=== PATIENT | female | born 1955 | race Caucasian/White ===

== ENCOUNTER 2023-09-13 07:16 | Inpatient (IN) | payer MEDICARE, OTHER, SELFPAY ==
--- NOTE | 2023-08-19 09:03 | EKG12_ITS ---
Test Reason : PREOP Blood Pressure : / mmHG Vent. Rate : 081 BPM Atrial Rate : 081 BPM P-R Int : 122 ms QRS Dur : 080 ms QT Int : 374 ms P-R-T Axes : 014 -02 000 degrees QTc Int : 434 ms Normal sinus rhythm Normal ECG Confirmed by Patrick Pennington ([id number]), scientific publications editor JANICE HARP ([id number]) on 08/20/2023 6:23:53 AM Referred By: Efren Nevarez Confirmed By:Patrick Pennington
[2023-08-19 10:30] LABS: Absolute Lymphocyte Count 1.76 X10^3/uL (0.83-4.51); Basophil# 0.04 X10^3/uL; Basophil% 0.6 % (0-1); Eosinophil# 0.12 X10^3/uL; Eosinophils% 1.9 % (0-5); Hematocrit 42.4 % (37-47); Hemoglobin 13.7 g/dL (12.0-15.0); Lymphocyte # 1.76 X10^3/ul (0.83-4.51); Lymphocyte % 27.3 % (19-41); Mean Corp Hgb Conc 32.3 g/dL (32-36); Mean Corpuscular Hgb 30.4 pg (27.0-32.0); Mean Platelet Vol. 12.5 fl (6.2-12.0); Monocyte# 0.55 X10^3/uL; Monocyte% 8.5 % (0-10); NRBC Flagged by Analyzer 0 % (0-5); Neutrophil # 3.95 X10^3/uL (2.7-7.7); Neutrophil % 61.4 % (47-70); Platelet Count 179 K/mm3 (150-450); RBC Distribution Width CV 13.2 % (11.6-14.6); RBC Distribution Width SD 45.6 fl (35.1-43.9); Red Blood Count 4.51 M/mm3 (4.2-5.4); White Blood Count 6.4 K/mm3 (4.4-11.0)
[2023-08-19 10:46] LABS: Magnesium 2.8 mg/dL (1.6-2.6)
[2023-08-19 13:22] LABS: Albumin, Serum 3.7 g/dL (3.2-5.0); Anion Gap 8 (5-15); BUN 21 mg/dL (7-18); BUN/Creat Ratio 32.1 RATIO (10-20); Calcium,Total 9.7 mg/dL (8.5-10.1); Chloride 108 mmol/L (98-107); Creatinine, Serum 0.65 mg/dL (0.55-1.02); EST Glomerular Filtration Rate 95 mL/min (>60); Est Glom Filt Rate - Afr Amer 115 mL/min (>60); Glucose 98 mg/dL (74-106); Potassium 4.4 mmol/L (3.5-5.1); Sodium Level 144 mmol/L (136-145)
--- NOTE | 2023-09-08 13:58 | HP.PCM_ITS ---
History and Physical History and Physical Patient Name: Rosie Abrams : 1955From:? [facility] PA-C DATE OF PRE-OPERATIVE EXAM: 09/08/2023 DATE OF SURGERY:? 09/13/2023 SCHEDULED PROCEDURE: Revision right total knee arthroplasty with both components HISTORY OF PRESENT ILLNESS: Preoperative history and physical exam was performed on September 08, 2023.? This is a 67-year-old female who is been having ongoing right knee pain.? She underwent a previous right knee arthroplasty by Dr. Campos on November 27, 2022.? This was followed by manipulation under anesthesia by Dr. Campos on February 15, 2023.? Patient wanted a second opinion in which she was seen Dr. Efren Nevarez.? Patient has had continued pain which is constant, aching, sharp, stabbing.? Pain is increased with going up and down stairs, sitting and walking.? She has difficulty with activities of daily living including bathing/showering, getting dressed, housework, shopping and leisure activities.? She has difficulty riding in the car secondary to the pain.? She cannot sit for long periods of time.? She has stiffness in the knee.? Patient has been through previous physical therapy, Medrol Dosepak, oxycodone, Advil, meloxicam.? She has also tried muscle relaxers area she has also had cupping treatments.? Patient was also prescribed Montelukast as an off label use for scar tissue/adhesion prevention.? In which she had a geniculate nerve ablation.? That was not helpful.? She is frustrated with her knee pain and stiffness.? She is using a cane for ambulatory assistance.? Patient has medical history pertinent for hypertension.? She has received clearance from the primary care provider Dr. Tony Jones.? She denies past history of DVT or pulmonary embolism.? However she did have anaphylactic reaction with swelling of her lips after taking aspirin.? She is able to tolerate meloxicam.? She denies any recent chest pain, shortness of breath, fevers chills or recent infections.? After failing conservative measures and discussing all treatment options with Dr. Efren Nevarez, the patient does wish to proceed with a revision right total knee arthroplasty both components. REVIEW OF SYSTEMS: Review Of Systems: Constitutional: Reports change in appetite and weight change, but denies fever. Cardiovasular: Denies chest pain, heart murmur and irregular heartbeat. Respiratory: Denies cough, pneumonia, shortness of breath, tuberculosis and wheezing. Gastrointestinal: Denies constipation, diarrhea, heartburn, nausea, rectal itching, bloody stools and vomiting. Musculoskeletal: Reports leg swelling, pain, trouble walking and weakness. Skin: Denies Raynaud's, history of shingles and tattoo. Neurological: Denies ambulatory dysfunction, dizziness, numbness/tingling and tremor. Psychiatric: Reports insomnia, but denies anxiety and stress. Hematologic/Lymphatic: Denies anemia, bleeding/bruising tendency and past transfusion. Reviewed, no changes. PAST MEDICAL HISTORY: Advance Care Plan: Other Directive, LIVING WILL Effective Date: 03/22/2023 Past Medical History: Medical Problems: Arthritis, High Blood Pressure Accidents: None Surgical Hx: Gallbladder - (2001) Hysterectomy - (1991) Tonsillectomy Knee Replacement Rt - (2022) Left Foot- Big Toe - (2009) Anesthesia Complications: None Assistive Devices: Glasses, Cane Reviewed, no changes. SOCIAL HISTORY: Social History: Marital: .Occupation: Retired.Work Status: Retired.Hand Dominance: Right- handed. Personal Habits:? Cigarette Use: Never Smoked Cigarettes.Smokeless Tobacco: Never Used Smokeless Tobacco.E-Cigarette Use: Never used.Alcohol: Occasionally.Drug Use: Denies Use.Enjoy Exercising: Never Exercises. Reviewed, no changes. VITALS: Ht: 60 Wt: 160lb Wt k.576 BMI: 31.2 BP: 124/76 Pulse: 91 Resp: 16 T: 98.0 T: 36.7C Pain Level: 7 O2SatR: 98 ALLERGIES: Codeine Sulfa - child Yesy Aspirin - lip swelling MEDICATIONS: Mupirocin 2 % use qtip and apply inside each nostril twice a day until the day of surgery, Meloxicam 7.5 mg 1 by mouth twice a day, Vitamin D? 50 mg daily, Lisinopril 10 mg 1 by mouth every day, Elderberry 500 mg, Multi For Her? daily, Diclofenac Sodium 1 % apply 2-4 times daily over affected area PRE-OP EXAM: General appearance:NORMAL? Other: Eyes: Conjunctivae and lids: NORMAL? Pupils: ERR Ears, Nose, Mouth, and Throat: NORMAL? Other: Inspection of lips, teeth and gums: NORMAL?? Other: Neck: Examination of neck: no masses noted. Respiratory: Assessment of respiratory effort: NORMAL?? Other: ? Auscultation of lungs: clear to auscultation no wheezes, rhonchi or rales. Cardiovascular:? Auscultation of heart: regular rate and rhythm, no murmurs, gallops or rubs. PHYSICAL EXAMINATION: On exam of patient's right knee the previous incision is well healed without any erythema.? There is mild effusion.? She has global tenderness throughout the knee.? Range of motion: Lacks 8 full extension to 70 flexion.? Stable to varus/5 distress test.? Sensation intact to light touch. IMAGING STUDIES: Previous x-rays of the right knee reveal stable well aligned total knee replacement with well fixed implants IMPRESSION: 1.? 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 Hypertension 3.? Obesity with BMI 31.2 PLAN: Dr. Efren Nevarez did discuss and review with the patient all treatment options including surgical versus nonsurgical options.? Patient does wish to proceed with the above-stated procedure.? Potential risks, benefits, and complications of the procedure were discussed in detail including but not limited to , infection, nerve and blood vessel damage, persistent pain, numbness, tingling, paresthesias, blood clot, pulmonary embolism, and requirement for possible further surgery.? The patient expressed full understanding and has no further questions for the doctor.? Patient does agree to proceed with the above-stated procedure and has signed the surgery consent form. POST-OP MEDICATION PLAN: Pain Medications: Postoperative pain regimen will be initiated by Dr. Efren Nevarez in the hospital.? Patient does have a walker that she will bring to the hospital.? Patient does tolerate meloxicam however does have an aspirin allergy in which she had swelling of the lips.? I would have her avoid the meloxicam while she is on the Xarelto for 2 weeks post-operatively for DVT prophylaxis. DVT Prophylaxis: Patient will be placed on Xarelto 10 mg take 1 tablet for 2 weeks post-operatively. This dictation was created using voice recognition software. Phonetic and/or grammatical errors may exist. ___? I have re-examined the patient.? There are no clinical changes since date of exam. ___? See progress notes for changes. ___? Dictated on admission Date: ? Time: Signature:
[2023-09-13] VITALS (16 sets, daily range): BP systolic 114–147; BP diastolic 56–80; PULSE 74–119; RESP 14–18; TEMP 36.1–37.2; O2SAT 88–98; BMI 31.4
[2023-09-13] MEDS: Magnesium 1 GM over 15 mins IV (09:51)
[2023-09-13] MEDS: Lactated Ringers 1,000 ML 999 ML IV ×2 (09:51→14:00)
--- NOTE | 2023-09-13 09:51 | PRE.ANES_ITS ---
ASA Classification* ASA Classification ASA Classification: 2 Assessment & Plan Anesthesia* Anesthesia Assessment Anesthesia Assessment: Discussed sedation and/or anesthesia options, risks, benefits, and alternatives with patient/parents/legal guardian/POA. Questions invited. The patient/parents/legal guardian/POA seems to understand and agrees to proceed with anesthesia plan. Reviewed the physical assessment, medical history, allergy history and patient home medications list prior to surgery/procedure/anesthetic and documented any changes. Performed airway and anesthesia risk assessments. Anesthesia Type Anesthesia Type: Spinal (*see written pre anesthesia record for full assessment) Anesthesia Focused Assessment* Airway Assessment Mouth opens: >3 cm Mallampati Score: II Focused Labs Anesthesia Preop lab: CBC WBC 6.4 K/mm3 (4.4-11.0) 08/19/23 09:19 RBC 4.51 M/mm3 (4.2-5.4) 08/19/23 09:19 Hgb 13.7 g/dL (12.0-15.0) 08/19/23 09:19 Hct 42.4 % (37-47) 08/19/23 09:19 Plt Count 179 K/mm3 (150-450) 08/19/23 09:19 CHEMISTRY Potassium 4.4 mmol/L (3.5-5.1) 08/19/23 09:19 Sodium 144 mmol/L (136-145) 08/19/23 09:19 Magnesium 2.8 mg/dL (1.6-2.6) H 08/19/23 09:19 BUN 21 mg/dL (7-18) H 08/19/23 09:19 Creatinine 0.65 mg/dL (0.55-1.02) 08/19/23 09:19 Glucose 98 mg/dL (74-106) 08/19/23 09:19 COAG Pre-Assessment Diagnosis/Proposed Procedure Planned Operative Procedure(s): REVISION TOTAL KNEE REPLACEMENT ENTIRE FEMORAL AND TIBIAL COMPONENTS Anesthesia History 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 When Was Last Pacemaker Check QUESTION #4 FULL TEXT: You/Your Family Experience fever (hyperthermia) with Anesthesia Last Oral Intake Last Oral intake: Last Oral Intake NPO since Meds taken in AM with sips of water? Meds patient instructed to take am of surgery PONV PONV - adjunct communications faculty member: PONV - adjunct communications faculty member Female Yes 08/18/23 09:26 HX of Motion Sickness No 08/18/23 09:26 HX of N/V After Surgery No 08/18/23 09:26 Non-Smoker Yes 08/18/23 09:26 Duration of Surgery greater Yes 08/18/23 09:26 than 60 minutes Number of Risk Factors 3 08/18/23 09:26 PONV Score Moderate Risk 08/18/23 09:26 Height & Weight Height & Weight: Anesthesia: Height & Weight Height 5 ft 09/10/23 10:07 Weight: 72.575 kg 09/10/23 10:07 Respiratory Assessment Respiratory Assessment - adjunct communications faculty member: Respiratory Tract Infection Hx - adjunct communications faculty member Hx Respiratory Tract Infection No 08/18/23 09:26 STOP Sleep Apnea STOP Sleep Apnea - adjunct communications faculty member: STOP Sleep Apnea - adjunct communications faculty member Hx Hypertension Yes: CONTROLLED WITH MED 08/18/23 09:26 Hx Sleep Apnea No 08/18/23 09:26 CPAP BIPAP Do you snore loudly (louder No 08/18/23 09:26 than talking or can be heard Do you often feel tired/ No 08/18/23 09:26 fatigued/ sleepy during daytime? Has anyone observed you stop No 08/18/23 09:26 breathing during sleep? STOP Results Negative 08/18/23 09:26 QUESTION #5 FULL TEXT : Do you snore loudly (louder than talking or can be heard through closed doors)? 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 Specify any problems Hx of Preganancy in last 3 N/A 08/18/23 09:26 Months Nurse Filling Out Transfusion NBUCHER 08/18/23 09:26 & Questions: Date: 08/18/23 08/18/23 09:26 Time: :08/18/23 09:26 Patient unable to answer at this time (ie. confused, unrespo /Reproduction History /Reproductive History - adjunct communications faculty member: /Reproductive Hx- adjunct communications faculty member Hx Now No 08/18/23 09:26 Gestational Age (in weeks): EDC: Hx Hx Para Hx Section SAB No 08/18/23 09:26 Active Medications Active Medications: Current Medications Generic Name Dose Route Start Last Admin Trade Name Rovertoq PRN Reason Stop Dose Admin Acetaminophen 1,000 mg 09/13/23 12:00 Acetaminophen 500 Mg Tablet PO 09/13/23 12:01 X1 ONE Acetaminophen 1,000 mg 09/13/23 14:00 Acetaminophen 500 Mg Tablet PO Q8 [facility] Celecoxib 400 mg 09/13/23 12:00 Celecoxib 200 Mg Capsule PO 09/13/23 12:01 X1 ONE Cholecalciferol 50 mcg 09/13/23 10:00 Cholecalciferol (Vit D3) 25 Mcg Tablet (1,000 Units) PO DAILY [facility] Sodium Chloride 77.4 ml/ 0 ml 09/13/23 12:00 Ropivacaine 200 mg/ OPERA.SITE 09/13/23 12:01 Epinephrine HCl 0.6 mg/ X1 ONE Ketorolac Tromethamine 30 mg/ Morphine Sulfate 5 mg Dexamethasone Sodium Phosphate 10 mg 09/13/23 12:00 Dexamethasone 10 Mg/Ml Vial IV 09/13/23 12:01 X1 ONE Doxycycline Monohydrate 100 mg 09/14/23 13:00 Doxycycline 100 Mg Capsule PO BID [facility] Enteral Nutritional Formula 237 ml 09/13/23 08:00 Ensure Surgery 237 Ml Liquid PO TIDCM [facility] Famotidine 20 mg 09/13/23 10:00 Famotidine 20 Mg Tablet PO DAILY [facility] Gabapentin 600 mg 09/13/23 12:00 Gabapentin 600 Mg Tablet PO 09/13/23 12:01 X1 ONE Lactated Ringer's 1,000 mls @ 999 mls/hr 09/13/23 12:00 IV 09/13/23 13:00 .Q1H1M LIAN Cefazolin Sodium 2 gm/ Sodium 110 mls @ 150 mls/hr 09/13/23 12:00 Chloride IV 09/13/23 12:43 PREOP ONE Tranexamic Acid 1,000 mg/ 110 mls @ 660 mls/hr 09/13/23 12:00 Sodium Chloride IV 09/13/23 12:09 X1 ONE Tranexamic Acid 1,000 mg/ 110 mls @ 660 mls/hr 09/13/23 12:00 Sodium Chloride IV 09/13/23 12:09 X1 ONE Lactated Ringer's 1,000 mls @ 999 mls/hr 09/13/23 12:00 IV 09/13/23 13:00 .Q1H1M LIAN Lactated Ringer's 1,000 mls @ 125 mls/hr 09/13/23 12:00 IV 09/13/23 19:59 .Q8H LIAN Lactated Ringer's 1,000 mls @ 75 mls/hr 09/13/23 12:00 IV 09/14/23 01:19 .[id number] LIAN Cefazolin Sodium 1 gm in 50 mls @ 150 mls/hr 09/13/23 14:00 IV 09/13/23 22:19 Q8 LIAN Vancomycin HCl 1,000 mg in 200 mls @ 200 mls/hr 09/13/23 10:00 Vancomycin IV 09/13/23 10:59 X1 ONE Insulin Human Lispro 1 - 6 unit 09/13/23 12:00 Insulin Lispro 100 Unit/Ml Insuln.Pen SC 09/13/23 18:00 Q4H PRN PRN BG>/= 180, SEE PROTOCOL Protocol Ketorolac Tromethamine 15 mg 09/13/23 07:16 Ketorolac 15 Mg/Ml Vial IV 09/15/23 07:18 Q6H PRN PRN Pain Score 1-5 Lisinopril 10 mg 09/13/23 10:00 Lisinopril 10 Mg Tablet PO DAILY [facility] Protocol Meloxicam 7.5 mg 09/15/23 10:00 Meloxicam 7.5 Mg Tablet PO BID [facility] Morphine Sulfate 2 - 4 mg 09/13/23 07:16 Morphine 2 Mg/Ml Syringe IV Q2H PRN PRN Pain Score 6-10 Multivitamins 1 tablet 09/13/23 10:00 Multivitamins,Therapeutic Tablet PO DAILY [facility] Ondansetron HCl 4 mg 09/13/23 07:16 Ondansetron 4 Mg/2 Ml Vial IV Q8H PRN PRN NAUSEA Oxycodone HCl 5 - 10 mg 09/13/23 07:16 Oxycodone 5 Mg Tablet PO Q4H PRN PRN Pain Score 4-10 Promethazine HCl 12.5 mg 09/13/23 07:16 Promethazine 25 Mg/Ml Syringe IM Q6H PRN PRN NAUSEA/VOMITING Protocol Rivaroxaban 10 mg 09/14/23 06:00 Rivaroxaban 10 Mg Tablet PO DAILY@0600 [facility] Senna/Docusate Sodium 2 tablet 09/13/23 10:00 Senna/Docusate Sodium 1 Tablet PO BID [facility] Sodium Chloride 5 - 15 ml 09/13/23 12:00 0.9% Nacl Peripheral Flush Adult/Peds IV UD PRN SALINE FLUSH PFSH Medical History Wears glasses Alcohol use Ambulates with cane Arthritis Hypertension Non-smoker Home Medications ?Medication ?Instructions ?Recorded ?Last Taken ?Type acetaminophen 650 mg 650 mg PO Q12H PRN pain 08/18/23 Unknown History tablet,extended release (8 Hour Pain Reliever) cholecalciferol (vitamin D3) 50 50 mcg PO DAILY SUPPLEMENT 08/18/23 Unknown History mcg (2,000 unit) tablet (Vitamin D3) elderberry fruit 200 mg capsule 500 mg PO DAILY SUPPLEMENT 08/18/23 Unknown History lisinopril 10 mg tablet 10 mg PO DAILY HYPERTENSION 08/18/23 Unknown History meloxicam 7.5 mg tablet 7.5 mg PO DAILY PAIN 08/18/23 Unknown History multivitamin (Daily Multi-Vitamin 1 tab PO DAILY SUPPLEMENT 08/18/23 Unknown History tablet) Allergy/AdvReac Type Severity Reaction Status Date / Time Sulfa (Sulfonamide Allergy Unknown PT UNSURE Verified 09/13/23 09:50 Antibiotics) OF REACTION aspirin Allergy Angioedema Verified 09/13/23 09:50 codeine AdvReac Intermediate Nausea/Vom/ Verified 09/13/23 09:50 Diarrhea Surgical History History of foot surgery (~2009) History of right knee joint replacement (~2022) History of tonsillectomy History of hysterectomy (~1991) History of cholecystectomy (~2001) Social History Smoking Status: Never smoker Review of Systems (Anesthesia) ROS Narrative System reviewed and no additional complaints, except as documented.
[2023-09-13] MEDS: Gabapentin 600 MG Tablet PO (10:10)
[2023-09-13] MEDS: Acetaminophen 500 MG Tablet 1000 MG PO ×3 (10:11→22:14)
[2023-09-13] MEDS: Celecoxib 200 MG Capsule 400 MG PO (10:11)
[2023-09-13] MEDS: Vancomycin IV 1,000 MG/200 ML BAG 200 MG IV (10:12)
[2023-09-13] MEDS: Insulin Lispro 100 UNIT/ML INSULN.PEN SC (10:16)
[2023-09-13 10:25] LABS: Bedside Glucose 187 mg/dL (74-106)
[2023-09-13] MEDS: Cefazolin 2 GM in 0.9% Normal Saline (100mL Bag) 100 ML IV (11:07)
[2023-09-13] MEDS: dexAMETHasone 10 MG/ML Vial IV (11:07)
[2023-09-13] MEDS: TXA 1000mg in NS100 100ml (IVPB at Incision) 660 MG IV (11:18)
[2023-09-13] MEDS: JPS (Morphine 10mg/ml) OPERA.SITE (13:09)
[2023-09-13] MEDS: TXA 1000mg in NS100 100ml (IVPB at Closure) 660 MG IV (13:10)
--- NOTE | 2023-09-13 13:28 | OP.PCM_ITS ---
Report of Operation Date of Procedure: 09/13/23 Pre-Operative Diagnosis: Painful right total knee arthroplasty, arthrofibrosis Post-Operative Diagnosis: Painful right total knee arthroplasty, arthrofibrosis Surgery/Procedure Performed:: Revision right total knee arthroplasty entire femoral tibial component Surgeon: Efren Nevarez pattern keeper: Oz Ferrer Type of Anesthesia: Spinal Anesthesiologist: Ellis Suarez Special Medications: 2 g Ancef, 1 g TXA at incision, 1 g TXA closure, 10 mg Decadron, joint cocktail (5 mg Duramorph, 30 mL of 0.5% Ropivicaine, 1000 units of epinephrine, 30 mg of Toradol) Specimen's removed: 3 separate specimens were sent to microbiology Estimated Blood Loss (mL): 200 Fluids Replaced: 1500 mL crystalloid Description of Procedure: Implants used: Femur: Trinidad triathlon total stabilized size 2 right distal femoral component with 5 mm augment medially and 10 mm augment laterally. 12 x 100 mm cemented stem Tibia: Trinidad universal tibial baseplate with 12 x 50 mm cemented stem. Size B tibial cone Poly: Trinidad X.3 triathlon posterior stabilized 11 mm polyethylene Brief history operative indications: 67-year-old F with total knee replacement in 2022. Patient demonstrated severe arthrofibrosis with associated pain. After ruling out infection we agreed to proceed with revision total knee replacement which had risks which include but not limited to blood loss, DVTs, PEs, nervous damage, infection, the risk of anesthesia. Patient demonstrate understanding was able to sign informed consent. Medical clearance was obtained. Procedure: On the date of procedure patient's R lower extremity was marked in the preoperative area. The patient was then taken back to the operating room where the patient was placed on the table in the supine position. All bony prominences were identified a well-padded. Anesthesia assumed control of the C-spine and airway and remained controlled throughout the remainder of the procedure. A tourniquet was placed on the R upper thigh and the leg was prepped in a sterile fashion. The surgeon then scrubbed at this time. Upon reentering the room R lower extremity was draped in a standard orthopedic fashion. A timeout was then called and everyone agreed upon the side, the site, the procedure to be performed, patient's identity and antibiotics given. An Esmarch bandage was used to exsanguinate the extremity and the tourniquet was placed up to 250 mmHg with the knee in flexion. A midline skin incision was made using the previous incision and extending it proximally and distally to identify normal tissue planes. Medial and lateral flaps were developed appropriate releases. The standard medial parapatellar arthrotomy was made and the patella was subluxed laterally. At this time an aggressive synovectomy was performed re-creating the medial gutter first, then the suprapatellar pouch than the lateral gutter. Once this was completed the knee was flexed up an osteotome was used to remove the tibial polyethylene. The remainder of the synovium was debrided. The standard deep MCL release was done and the patella scar pad was resected and lateral releases were performed. Next our attention was directed to the femur. Where flexible osteotomes and TPS saw were used to break up the implant cement interface. This was done both medially and laterally. After this a bone tamp was used to remove the femur component from the end of the bone. This was done with minimal bone loss. At this time attention was now directed towards the proximal tibia. Possible osteotome and TPS saw were then used to break up the proximal tibia implant interface and stacked osteotomes were used to remove the tibial implant. This was done with minimal bone loss. Our attention was then turned to the tibia where the intramedullary canal was reamed to 18MM and a size C tibial cone was reamed. We then made a cleanup cut on the tibia, A drop jenny was then used to verify the cut. A size 2 tibial base plate was selected. the knee was flexed and the tibial component was pinned into place and the boss reamer was used to ream the proximal medullary canal. The trial implant was impacted in its prepared position. Our attention was then turned back to the femur or the femur intramedullary canal was reamed to 15 mm using the previous implants a size 2 TCG cutting guide with a 14 mm stem was put into place. The medial epicondyle was used to set the joint line. With this TCG cutting guide we used a 11 mm polyethylene trial in order to help balance the gaps. Once the gaps were appropriately balanced the guide was firmly pinned into place. Distal cuts were made with 5 mm augments medially and 10 mm augment laterally. Posterior cuts were made with 0 mm augments medially and 0 mm augment laterally. Using the guide the box cut was made using a reciprocating saw. The appropriate trials were then placed on the femur and tibia. A trial polyethylene was trialed to ensure proper balancing and stability of the knee. Patella tracking, was then verified and corrected appropriately as needed. Our attention was then directed to the patella. Patella remained intact and appropriate. Based on x-rays it was firmly fixed. Patellar tracking was again checked and deemed appropriate. Final components were verified and opened, 6 liters of normal saline were irrigated throughout the joint under low-pressure lavage. Then the cement was mixed in a vacuum. Sejal Simplex cement with tobramycin was used. The wound was copiously irrigated with normal saline. When the cement was ready cement plugs were placed in the tibial cone was placed the components were cemented into place starting with the tibia, femur. The trial poly component was placed and the knee was placed in full extension. All excess cement was removed in the process. Once the cement had cured the tracking, alignment and balance were verified and a size 11 mm PS polyethylene component was placed. Once the final components were placed a 3-minute dilute Betadine lavage followed by a chlorhexidine lavage was used and the wound was copiously irrigated with normal saline solution and the remainder of the periarticular injection was given. The wound was closed in a layer holland fashion using #1 vicryl interrupted sutures for the arthrotomy, 2-0 interrupted Vicryl for the subcuticular layer and nylon sutures for final skin closure. A sterile compressive dressing was then placed. The patient was then awakened from anesthesia, transferred to the [facility] and transferred to the PACU for recovery. Post op plan DVT ppx: Xarelto 10 mg daily for 2 weeks, thigh high compression stockings Follow up: in office in 2 weeks for wound check PT: to start POD #0 at hospital, outpatient PT should be arranged. Doxycycline 100 mg p.o. twice daily as we follow cultures. My physician healthcare administrative assistant was a vital part of this case. He was important in appropriate retraction during the case, and protection of soft tissues during bony cuts. His intimate knowledge of the case and my steps aided in safe and expedient completion of the procedure as well as appropriate position of the leg during the case. He was also vital in assisting with closure under my direct supervision. Grafts/Implants Used: Trinidad triathlon total knee replacement Complications No intraoperative complications Admit VTE Documentation VTE Present on Admission: No VTE Mechan Device Prophylaxis: SCD's and Thigh High YOANDY Hose VTE Pharm Prophylaxis ordered?: Yes
--- NOTE | 2023-09-13 13:58 | PCM.POST.ANE ---
Anesthesia: Postop Eval I Current Vital Signs Temperature: 98.2 F Pulse Rate: 106 Blood Pressure: 120/74 Respiratory Rate: 18 Pulse Ox: 93 Assessment Airway patent: Yes Spontaneous unlabored respirations: Yes nausea: No Vomiting: No Anesthesia Complication: No Fluid Hydration Crystalloid volume administer (ml): 1,500 Total IV fluid infused: 1,500 Progress Note Anesthesia document: Postop Eval 1 completed: Yes
--- NOTE | 2023-09-13 14:10 | RAD_ITS ---
STUDY: X-RAY - RIGHT KNEE REASON FOR EXAM: Female, 67 years old. Post op -- AP and Lateral xray of operative knee in PACU TECHNIQUE: 2 view(s) of the knee. COMPARISON: None. FINDINGS: Normal visualized distal femur. Normal visualized proximal tibia and fibula. Normal proximal tibiofibular articulation. The patient is status post total knee replacement. There is good alignment. Postoperative soft tissue changes. RAD/Knee 1 or 2 Views IMPRESSION: Status post right total knee replacement. There is good alignment. Postoperative soft tissue changes. Electronically Signed: Yakov Cotto MD at 14:31 EDT ,
[2023-09-13] MEDS: Lactated Ringers 1,000 ML 125 ML IV (15:00)
[2023-09-13] MEDS: oxyCODONE 5 MG Tablet PO (16:00)
[2023-09-13 16:21] LABS: Bedside Glucose 146 mg/dL (74-106)
--- NOTE | 2023-09-13 16:25 | POSTOPAN2_ITS ---
Anesthesia Postop Eval I Sum Postop Eval Completion status Anesthesia document: Postop Eval 1 completed: Yes Anesthesia Postop Eval I Summary Anesthesia Postop Eval I Summary: Anesthesia Postop Eval I: Assessment Summary Airway patent Yes 09/13/23 13:58 MARKETING ANALYTICS SPECIALIST.[email or web address] Spontaneous unlabored Yes 09/13/23 13:58 MARKETING ANALYTICS SPECIALIST.CSIR respirations Mental status nausea No 09/13/23 13:58 MARKETING ANALYTICS SPECIALIST.CSIR Vomiting No 09/13/23 13:58 MARKETING ANALYTICS SPECIALIST.CSIR Anesthesia Postop Eval I: Fluid Summary Crystalloid volume administer 1,500 09/13/23 13:58 MARKETING ANALYTICS SPECIALIST.CSIR (ml) Colloids volume administered ( ml) Blood Product volume administered (ml) Total IV fluid infused 1,500 09/13/23 13:58 MARKETING ANALYTICS SPECIALIST.CSIR Anesthesia Postop Eval I: Summary Notes Anesthesia Complication No 09/13/23 13:58 MARKETING ANALYTICS SPECIALIST.CSIR Anesthesia Complication Comment: Post-operative progress note Anesthesia: Postop Eval II Evaluation Mental status: Awake and Apprehensive Pain Level: 3 nausea: No Vomiting: No Complications Anesthesia Complication: No
--- NOTE | 2023-09-13 16:25 | PCM.POSTANE2 ---
Anesthesia Postop Eval I Sum Postop Eval Completion status Anesthesia document: Postop Eval 1 completed: Yes Anesthesia Postop Eval I Summary Anesthesia Postop Eval I Summary: Anesthesia Postop Eval I: Assessment Summary Airway patent Yes 09/13/23 13:58 SLATE [email or web address] Spontaneous unlabored Yes 09/13/23 13:58 SLATE SPLITTER.CSIR respirations Mental status nausea No 09/13/23 13:58 SLATE SPLITTER.CSIR Vomiting No 09/13/23 13:58 SLATE SPLITTER.CSIR Anesthesia Postop Eval I: Fluid Summary Crystalloid volume administer 1,500 09/13/23 13:58 SLATE SPLITTER.CSIR (ml) Colloids volume administered ( ml) Blood Product volume administered (ml) Total IV fluid infused 1,500 09/13/23 13:58 SLATE SPLITTER.CSIR Anesthesia Postop Eval I: Summary Notes Anesthesia Complication No 09/13/23 13:58 SLATE SPLITTER.CSIR Anesthesia Complication Comment: Post-operative progress note Anesthesia: Postop Eval II Evaluation Mental status: Awake and Apprehensive Pain Level: 3 nausea: No Vomiting: No Complications Anesthesia Complication: No
--- NOTE | 2023-09-13 20:23 | CON.PCM.HO_ITS ---
Assessment & Plan Assessment/Plan (1) Hypertension: (2) History of arthroplasty of right knee: PLAN: Plan Plan 1. Status post right knee total arthroplasty revision surgery -patient is admitted to the general medical floor and managed per orthopedic surgeon Dr. Nevarez. 2. History of hypertension?controlled 3. DVT prophylaxis?managed per Ortho Will continue following along peripherally if any medical issues should arise during her hospitalization HPI Consult Data Date of Consult: 09/13/23 HPI Narrative Reason for Consultation: Medical management HPI Narrative: JOHN JERRY, is a 67 F who presents for consultation for medical management status post right knee total arthroplasty revision surgery. Patient has no significant complaints at this time and does not take chronic medications. Patient denies any chest pain, shortness of breath, fever or chills and/or nausea or vomiting. Patient states her postoperative pain is relatively well- controlled and that she feels tired at this time. PFSH Medical History Wears glasses Alcohol use Ambulates with cane Arthritis Hypertension Non-smoker Home Medications ?Medication ?Instructions ?Recorded ?Last Taken ?Type acetaminophen 650 mg 650 mg PO Q12H PRN pain 08/18/23 Unknown History tablet,extended release (8 Hour Pain Reliever) cholecalciferol (vitamin D3) 50 50 mcg PO DAILY SUPPLEMENT 08/18/23 09/12/23 History mcg (2,000 unit) tablet (Vitamin D3) elderberry fruit 200 mg capsule 500 mg PO DAILY SUPPLEMENT 08/18/23 09/07/23 History lisinopril 10 mg tablet 10 mg PO DAILY HYPERTENSION 08/18/23 Unknown History meloxicam 7.5 mg tablet 7.5 mg PO DAILY PAIN 08/18/23 Unknown History multivitamin (Daily Multi-Vitamin 1 tab PO DAILY SUPPLEMENT 08/18/23 Unknown History tablet) multivitamin (Daily Multi-Vitamin 1 tab PO DAILY health 09/13/23 09/07/23 History tablet) Allergy/AdvReac Type Severity Reaction Status Date / Time Sulfa (Sulfonamide Allergy Unknown PT UNSURE Verified 09/13/23 09:50 Antibiotics) OF REACTION aspirin Allergy Angioedema Verified 09/13/23 09:50 codeine AdvReac Intermediate Nausea/Vom/ Verified 09/13/23 09:50 Diarrhea Surgical History (Updated 09/13/23 @ 20:[address] Raman Crowell MD) History of foot surgery (~2009) History of right knee joint replacement (~2022) History of tonsillectomy History of hysterectomy (~1991) History of cholecystectomy (~2001) Social History Smoking Status: Never smoker ROS Constitutional Constitutional: Denies chills or fever(s) Eyes Eyes: Denies blurry vision ENT HEENT: Denies abnormal hearing Cardiovascular Cardiovascular: Denies chest pain Respiratory/Chest Respiratory/Chest: Denies shortness of breath at rest Gastrointestinal Gastrointestinal: Denies abdominal pain Genitourinary Genitourinary: Denies difficulty urinating Musculoskeletal Musculoskeletal: Reports joint stiffness Neurologic Neurologic: Denies confusion Psychiatric Psychiatric: Denies anxiety Physical Exam Const oriented x3 General Appearance: cooperative HEENT normocephalic and head/scalp atraumatic Neck no lymphadenopathy Resp normal respiratory effort, no use of accessory muscles and clear to auscultation bilaterally Cardio regular rate, regular rhythm, S1 normal heart sound and S2 normal heart sound Extremity Extremity Narrative: Right lower extremity immobilized Neuro oriented x3 Psych affect normal Lab / Micro Data 08/19/23 09:19 08/19/23 09:19 Labs: Laboratory Results - last 24 hr 09/13/23 10:05: POC Glucose 187 H 09/13/23 15:19: POC Glucose 146 H Imaging Radiology Impression Knee X-Ray 09/13/23 14:10 IMPRESSION: Status post right total knee replacement. There is good alignment. Postoperative soft tissue changes. Electronically Signed: Yakov Cotto MD at 14:31 EDT , Charges/Coding Visit Charges Inpatient E&M: 47407 Init Hosp L1
[2023-09-13] MEDS: Cefazolin 1 GM/50 ML BAG IV (20:27)
[2023-09-13] MEDS: Senna/Docusate Sodium 1 Tablet 2 TABLET PO (22:14)
[2023-09-14 03:15] VITALS: BP 116/52; PULSE 79; RESP 16; TEMP 36.6; O2SAT 95
[2023-09-14] MEDS: Cefazolin 1 GM/50 ML BAG IV (03:30)
[2023-09-14 06:19] VITALS: BP 123/67; PULSE 78; RESP 18; TEMP 36.6; O2SAT 97
[2023-09-14] MEDS: Acetaminophen 500 MG Tablet 1000 MG PO ×3 (06:21→22:29)
[2023-09-14] MEDS: oxyCODONE 5 MG Tablet PO ×4 (06:22→22:30)
[2023-09-14] MEDS: Rivaroxaban 10 MG Tablet PO (06:22)
[2023-09-14 06:58] LABS: Hematocrit 36.3 % (37-47); Hemoglobin 11.8 g/dL (12.0-15.0); Mean Corp Hgb Conc 32.5 g/dL (32-36); Mean Corpuscular Volume 95.3 fL (81-99); Mean Platelet Vol. 12.6 fl (6.2-12.0); Platelet Count 159 K/mm3 (150-450); RBC Distribution Width CV 13.2 % (11.6-14.6); RBC Distribution Width SD 45.8 fl (35.1-43.9); Red Blood Count 3.81 M/mm3 (4.2-5.4)
[2023-09-14 07:12] LABS: Anion Gap 7 (5-15); BUN 11 mg/dL (7-18); BUN/Creat Ratio 13.7 RATIO (10-20); Calcium,Total 8.6 mg/dL (8.5-10.1); Chloride 105 mmol/L (98-107); EST Glomerular Filtration Rate 75 mL/min (>60); Est Glom Filt Rate - Afr Amer 91 mL/min (>60); Estimated Creatinine Clearance 60.04 ml/min; Glucose 116 mg/dL (74-106); Potassium 3.8 mmol/L (3.5-5.1); Sodium Level 137 mmol/L (136-145)
--- NOTE | 2023-09-14 08:36 | PCM.PN.ORT ---
Subjective Subjective The patient was sitting in bedside chair upon examination. Patient denies any chest pain, shortness of breath, dizziness, lightheadedness, nausea or vomiting, or calf pain. Pain is controlled on medications. Patient is having some more pain over the anterior knee. No adverse overnight events. Patient's past history consisted of a previous right total knee arthroplasty by Dr. Campos on November 27, 2022. This was followed by a manipulation under anesthesia by Dr. Campos on February 15, 2023. Patient had significant limitations with range of motion and stiffness. She had continued pain. She did see Efren Nevarez for second opinion. Patient had previous inflammatory labs with ESR and CRP on May 05, 2023 at [facility]. ESR was 16 and CRP 0.7. Objective Data Objective Data Vital Signs: Vital Signs Temp Pulse Resp BP Pulse Ox O2 Del Method O2 Flow Rate 97.8 F 78 18 123/67 H 97 Room Air 2 09/14/23 06:19 09/14/23 06:19 09/14/23 06:19 09/14/23 06:19 09/14/23 06:19 09/14/23 06:19 09/13/23 20:32 Oxygen Flow Rate (L/min) 2 Oxygen Delivery Method Room Air Weight: 73.028 kg Body Mass Index (BMI) 31.4 Intake & Output: Intake and Output for Last 24 Hours 09/12/23 09/13/23 09/14/23 23:59 23:59 23:59 Intake Total 3365.33 / 3685.33 970 / 970 Balance 3365.33 / 3685.33 970 / 970 Lab / Micro Data 09/14/23 06:00 09/14/23 06:00 Labs: Laboratory Results - last 24 hr 09/13/23 10:05: POC Glucose 187 H 09/13/23 15:19: POC Glucose 146 H 09/14/23 06:00: WBC 13.0 H, RBC 3.81 L, Hgb 11.8 L, Hct 36.3 L, MCV 95.3, MCH 31.0, MCHC 32.5, RDW Std Deviation 45.8 H, RDW Coeff of Tani 13.2, Plt Count 159, MPV 12.6 H, Sodium 137, Potassium 3.8, Chloride 105, Carbon Dioxide 25.0, Anion Gap 7, BUN 11, Creatinine 0.80, Estim Creat Clear Calc 60.04, Est GFR (MDRD) Af Amer 91, Est GFR (MDRD) Non-Af 75, BUN/Creatinine Ratio 13.7, Glucose 116 H, Calcium 8.6 Micro: Microbiology 09/13/23 Unknown Tissue - Femoral Membrane Wound Culture - Preliminary Gram negative jenny GNR lactose professor of architecture 09/13/23 Unknown Tissue - Tibial Membrane Wound Culture - Preliminary Gram negative jenny Gram negative jenny#2 09/13/23 Unknown Tissue - Knee Wound Culture - Preliminary GNR lactose professor of architecture 08/19/23 09:19 Swab (Method) Nasal Screen MRSA/MSSA - Final Radiography Diagnostic Testing: Radiology Impression Knee X-Ray 09/13/23 14:10 IMPRESSION: Status post right total knee replacement. There is good alignment. Postoperative soft tissue changes. Electronically Signed: Yakov Cotto MD at 14:31 EDT , Physical Exam Narrative Vital signs stable and afebrile. SCDs and YOANDY hose are in place bilaterally Patient is able to plantarflex and dorsiflex actively. Sensation is intact to light touch to saphenous, sural, superficial and deep peroneal, and tibial distribution. Patient does have incisional wound VAC in place. However the nurse and patient has been having significant problems with this incisional wound VAC. Wound nurse attempted to resolve the problem however this needed changed which did fix the problem. Negative Homans bilaterally, negative signs and symptoms of DVT. Const alert, oriented x3 and no apparent distress Assessment & Plan Assessment/Plan (1) History of arthroplasty of right knee: (2) Status post revision of total replacement of right knee: PLAN: Plan 1. S/P revision right total knee arthroplasty both components femur and tibia POD #1 2. Continue Pain Medications: Tylenol, meloxicam, and oxycodone. I did advise the patient upon discharge we will hold off on meloxicam until she is finished with the Xarelto. 3. DVT Prophylaxis: Xarelto 10 mg 1 tablet daily for 2 weeks postoperatively. Patient gets angioedema with aspirin and we are unable to proceed forward with this medication postoperatively. 4. PT/OT: Weightbearing as tolerated with walker 5. H & H: 11.8/36.3, asymptomatic. Labs have been reviewed 6. Reactive leukocytosis: 13.0, Afebrile. Patient did receive Decadron intraoperatively. No clinical signs of infection. 7. Consultation to infectious disease: I did reach out to Dr. Guido and placed a consultation. Patient had positive growth on wound culture on all 3 specimens. Patient has a gram-negative jenny, gram-negative lactose professor of architecture. She is currently on doxycycline postoperatively. I did discuss case with Dr. Efren Nevarez. At this time we appreciate further recommendations from infectious disease. I did discuss with the patient probability of IV antibiotics postoperatively. I also discussed with patient's who she wanted me to talk to on the phone. Preoperatively patient had inflammatory lab work on May 05, 2023 with the ESR at 16 and CRP 0.7. 8. Prevena incisional wound VAC: The initial wound VAC was not working appropriately and wound nurse was able to evaluate it. She was not able to fix the initial wound VAC that was placed. A new Prevena incisional wound VAC was placed and working appropriately. Plan will be to have this on for 1 week postoperatively. I did advise the patient she is not to get this wet. We also discussed removing it if for some reason the battery would fail. She voiced understanding. 9. Encouraged Incentive Spirometry 10. Patient is aware of postoperative constipation that can occur from 1-3 days postoperatively. Will continue with senna 2 tablets twice daily until first bowel movement. Patient was advised if not having a bowel movement after day 3 she is to contact orthopedics so appropriate change can be made. Patient voiced understanding. 11. Continue postoperative medical treatment per medicine 12. Disposition: Due to patient's findings on microbiology today with gram-negative rods on all 3 cultures, infectious disease needed to be consulted. At this time we are waiting on recommendations from infectious disease with regards to postoperative antibiotics. I did briefly discuss with social psychologist the possibility of IV antibiotics and home health. Patient does have outpatient physical therapy established that may need to be adjusted if she does go home with home health. Patient will require additional stay until we can have appropriate antibiotic plan. Consultation was placed to infectious disease. I have reviewed the [place] Automated Rx Reporting System (OARRS) report for this patient for refill pattern and other prescriber involvement as part of the appropriate surveillance for the provision of acute and chronic controlled medications. The report was requested and reviewed on the date of this entry and was considered in the prescribing process. This dictation was created using voice recognition software. Phonetic and/or grammatical errors may exist.
--- NOTE | 2023-09-14 09:52 | PN.HOSP_ITS ---
Reason for Visit Reason for Visit: Diagnoses Essential (primary) hypertension (09/13/23) Encounter for other preprocedural examination (09/13/23) Presence of right artificial knee joint (09/13/23) Subjective Subjective Saw patient at bedside this morning. Sitting up fairly comfortably in bedside chair, in no acute distress. Orthopedic surgery PA had seen the patient earlier this morning and she noted that he told her that her right knee prosthetic unfortunately was infected. Noted that ID was going to see the patient and provide further recommendations. She was understandably upset by this news. She otherwise denied any fevers or chills. Denied any other acute pain or discomfort. No other acute concerns. Objective Data Objective Data Vital Signs: Vital Signs Temp Pulse Resp BP Pulse Ox O2 Del Method O2 Flow Rate 97.8 F 78 18 123/67 H 97 Room Air 2 09/14/23 06:19 09/14/23 06:19 09/14/23 06:19 09/14/23 06:19 09/14/23 06:19 09/14/23 06:19 09/13/23 20:32 Oxygen Flow Rate (L/min) 2 Oxygen Delivery Method Room Air Weight: 73.028 kg Body Mass Index (BMI) 31.4 Intake & Output: Intake and Output for Last 24 Hours 09/12/23 09/13/23 09/14/23 23:59 23:59 23:59 Intake Total 3365.33 / 3685.33 970 / 970 Balance 3365.33 / 3685.33 970 / 970 Lab / Micro Data 09/14/23 06:00 09/14/23 06:00 Labs: Laboratory Results - last 24 hr 09/13/23 10:05: POC Glucose 187 H 09/13/23 15:19: POC Glucose 146 H 09/14/23 06:00: WBC 13.0 H, RBC 3.81 L, Hgb 11.8 L, Hct 36.3 L, MCV 95.3, MCH 31.0, MCHC 32.5, RDW Std Deviation 45.8 H, RDW Coeff of Tani 13.2, Plt Count 159, MPV 12.6 H, Sodium 137, Potassium 3.8, Chloride 105, Carbon Dioxide 25.0, Anion Gap 7, BUN 11, Creatinine 0.80, Estim Creat Clear Calc 60.04, Est GFR (MDRD) Af Amer 91, Est GFR (MDRD) Non-Af 75, BUN/Creatinine Ratio 13.7, Glucose 116 H, Calcium 8.6 Micro: Microbiology 09/13/23 Unknown Tissue - Femoral Membrane Wound Culture - Preliminary Gram negative jenny GNR lactose remote mortgage underwriter 09/13/23 Unknown Tissue - Tibial Membrane Wound Culture - Preliminary Gram negative jenny Gram negative jenny#2 09/13/23 Unknown Tissue - Knee Wound Culture - Preliminary GNR lactose remote mortgage underwriter 08/19/23 09:19 Swab (Method) Nasal Screen MRSA/MSSA - Final Radiography Diagnostic Testing: Radiology Impression Knee X-Ray 09/13/23 14:10 IMPRESSION: Status post right total knee replacement. There is good alignment. Postoperative soft tissue changes. Electronically Signed: Yakov Cotto MD at 14:31 EDT , Physical Exam Const alert, oriented x3 and no apparent distress Constitutional Narrative: Elderly female, obese, sitting up comfortably in bed, conversing normally, in no acute distress. General Appearance: cooperative and comfortable HEENT normocephalic, head/scalp atraumatic, hearing grossly normal bilaterally, nasal mucous membranes and turbinates normal and moist oral mucous membranes Eyes PERRL, EOMs intact bilaterally and conjunctivae normal Neck full ROM Chest inspection of chest normal Resp normal respiratory effort, normal air movement, no use of accessory muscles and clear to auscultation bilaterally Cardio regular rate, regular rhythm, no murmurs and peripheral pulses 2+ throughout GI normal to inspection, nondistended, normoactive bowel sounds, soft to palpation, non-tender and non-distended Back/Spine normal ROM Extremity Extremity Narrative: Right knee with incisional wound VAC in place. Skin no rashes or lesions noted Neuro no focal motor deficits and no sensory deficits noted Speech: speech normal Psych mental status grossly normal Assessment & Plan Assessment/Plan (1) Prosthetic joint infection: (2) Status post revision of total replacement of right knee: (3) Anemia: PLAN: Plan Patient is a 67-year-old female who presented [facility] on 09/[facility] for planned right TKA revision. Medicine consulted postoperatively for medical management. 1. 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 Orthopedic surgery primary. Infectious disease following. Initial right TKA done back in November 2022 but patient had complications, requested second opinion with Dr. Nevarez. S/p right TKA revision with cultures collected on 09/13. Cultures unfortunately prelim growing gram-negative rods. Per ID, will treat with IV Zosyn for now, with plan for PICC and 6 weeks of IV antibiotics then long course of p.o. suppression antibiotics. Pain control with scheduled Tylenol and oxycodone as needed. PT/OT/case management following, will assist with discharge plans. 2. Mild acute postoperative anemia ? Hemoglobin 11.8 postop, down from baseline around 13-14. Due to expected operative blood loss. Will follow-up a.m. CBC. Chronic medical conditions: ? Hypertension: Stable. Continue home lisinopril. ? Obesity: BMI 31 on admit. Complicates hospital course, care and prognosis. DVT prophylaxis: Xarelto Total clinical time spent by myself addressing the patient's medical issues, reviewing all the data, and collaborating with patient's care team: 25 minutes. Charges/Coding Visit Charges Inpatient E&M: 72916 Subs Hosp L1
[2023-09-14 10:15] VITALS: BP 129/59; PULSE 79; RESP 18; TEMP 36.6; O2SAT 97
--- NOTE | 2023-09-14 10:33 | PCM.CONS.GEN ---
Assessment & Plan Assessment/Plan (1) Prosthetic joint infection: PLAN: R knee GNR PJI - taken for revision 09/13/[address] Nevarez. Will cover with zosyn for now. Plan will be for picc and 6 weeks iv abx then long course suppression po. Will follow, thank you HPI Consult Data Date of Consult: 09/14/23 HPI Narrative Reason for Consultation: PJI HPI Narrative: JOHN JERRY, is a 67 F who had R knee replacement 11/[address] Campos. Since surgery had ongoing stabbing pain in knee, worse with weight bearing. No fever, chills, night sweats. No knee swelling/redness/drainage. No recent abx, no recent dental work. Saw Dr. Nevarez, labs done, taken to OR for revision 09/13/23. Now surg cx (+) GNR. Feeling ok, pain controlled this AM. Full ROS performed and neg except as noted above. PFSH Medical History Wears glasses Alcohol use Ambulates with cane Arthritis Hypertension Non-smoker Home Medications ?Medication ?Instructions ?Recorded ?Last Taken ?Type acetaminophen 650 mg 650 mg PO Q12H PRN pain 08/18/23 Unknown History tablet,extended release (8 Hour Pain Reliever) cholecalciferol (vitamin D3) 50 50 mcg PO DAILY SUPPLEMENT 08/18/23 09/12/23 History mcg (2,000 unit) tablet (Vitamin D3) elderberry fruit 200 mg capsule 500 mg PO DAILY SUPPLEMENT 08/18/23 09/07/23 History lisinopril 10 mg tablet 10 mg PO DAILY HYPERTENSION 08/18/23 Unknown History meloxicam 7.5 mg tablet 7.5 mg PO DAILY PAIN 08/18/23 Unknown History multivitamin (Daily Multi-Vitamin 1 tab PO DAILY SUPPLEMENT 08/18/23 Unknown History tablet) multivitamin (Daily Multi-Vitamin 1 tab PO DAILY health 09/13/23 09/07/23 History tablet) Allergy/AdvReac Type Severity Reaction Status Date / Time Sulfa (Sulfonamide Allergy Unknown PT UNSURE Verified 09/13/23 09:50 Antibiotics) OF REACTION aspirin Allergy Angioedema Verified 09/13/23 09:50 codeine AdvReac Intermediate Nausea/Vom/ Verified 09/13/23 09:50 Diarrhea Surgical History (Updated 09/14/23 @ 08:45 by Yovani COELLO, PABebeC) History of foot surgery (~2009) History of right knee joint replacement (~2022) History of tonsillectomy History of hysterectomy (~1991) History of cholecystectomy (~2001) Social History Smoking Status: Never smoker Physical Exam Const alert, oriented x3 and no apparent distress General Appearance: cooperative HEENT normocephalic and head/scalp atraumatic Eyes PERRL and EOMs intact bilaterally Neck supple and No nodes Resp normal air movement and clear to auscultation bilaterally Cardio regular rate and regular rhythm GI soft to palpation, non-tender and non-distended Extremity General Extremity: Negative for edema Skin no rashes or lesions noted Skin Narrative: RLE wrapped Neuro CN's II-XII intact bilaterally Lab / Micro Data Attestation: I reviewed the patient's lab results. 09/14/23 06:00 09/14/23 06:00 Labs: Laboratory Results - last 24 hr 09/13/23 15:19: POC Glucose 146 H 09/14/23 06:00: WBC 13.0 H, RBC 3.81 L, Hgb 11.8 L, Hct 36.3 L, MCV 95.3, MCH 31.0, MCHC 32.5, RDW Std Deviation 45.8 H, RDW Coeff of Tani 13.2, Plt Count 159, MPV 12.6 H, Sodium 137, Potassium 3.8, Chloride 105, Carbon Dioxide 25.0, Anion Gap 7, BUN 11, Creatinine 0.80, Estim Creat Clear Calc 60.04, Est GFR (MDRD) Af Amer 91, Est GFR (MDRD) Non-Af 75, BUN/Creatinine Ratio 13.7, Glucose 116 H, Calcium 8.6 Micro: Microbiology 09/13/23 Unknown Tissue - Femoral Membrane Wound Culture - Preliminary Gram negative jenny GNR lactose md pediatric allergist 09/13/23 Unknown Tissue - Tibial Membrane Wound Culture - Preliminary Gram negative jenny Gram negative jenny#2 09/13/23 Unknown Tissue - Knee Wound Culture - Preliminary GNR lactose md pediatric allergist Imaging Radiology Impression Knee X-Ray 09/13/23 14:10 IMPRESSION: Status post right total knee replacement. There is good alignment. Postoperative soft tissue changes. Electronically Signed: Yakov Cotto MD at 14:31 EDT ,
[2023-09-14] MEDS: Famotidine 20 MG Tablet PO (10:42)
[2023-09-14] MEDS: Cholecalciferol (VIT D3) 25 MCG TABLET (1,000 UNITS) 50 MCG PO (10:42)
[2023-09-14] MEDS: Piperacil/Tazobactam 3.375 GM in 0.9% Normal Saline (50mL MB+) 50 ML IV ×2 (10:42→22:29)
[2023-09-14] MEDS: Senna/Docusate Sodium 1 Tablet 2 TABLET PO ×2 (10:42→22:29)
[2023-09-14] MEDS: 0.9% Saline Lock 10 ML Syringe IV ×2 (10:42→16:00)
[2023-09-14] MEDS: Multivitamins,Therapeutic Tablet 1 TABLET PO (10:42)
[2023-09-14] MEDS: Lisinopril 10 MG Tablet PO (10:42)
--- NOTE | 2023-09-14 12:26 | CASEMGMT ---
Discharge Planning A list of?HH providers including quality and resource use data and consistent with the patient's preferred geographic region, medical needs, and insurance network was created in [employer] Guide.? This list was provided to the RN TALAT. Carito Michel, Discharge Planning Asst.
[2023-09-14] MEDS: Doxycycline 100 MG CAPSULE PO ×2 (12:47→22:29)
--- NOTE | 2023-09-14 13:12 | CASEMGMT ---
AKIL GILLILAND Assessment: Face to Face with pt for initial transition planning/care coordination assessment. AKIL GILLILAND introduced self and role at [facility], pt voices understanding and consents to assessment. Pt is A&O x4 and answers all questions appropriately at this time. Pt sitting up in chair with at bedside. Pt agreeable to answering questions with present. Care providers, pharmacy, and demographics verified/updated. Strata: 1 Admitting Dx: Revision Total Knee Replacement PCP: Robert Specialists: Geri Preferred Pharmacy: [facility] Insurance: [facility] Prescription Benefit: yes LNOK: Living Arrangements: Pt lives with in a ranch home with 5 steps to enter. ADLs: Pt reports she was I at home prior to Knee replacement in November, but needs assistance from . Transportation: Pt reports she has not been able to drive since November, drives her to appointments. DME: Wheeled walker, cane, shower bench, raised toilet seat. HHC/SNF: Denies Hx of. Pt agreeable to [facility], provided list of local agencies covered by pt insurance, AKIL GILLILAND will follow up with pt on agency of choice. Provided pt list of local providers for IV antibiotics, Pt chose [facility]. Pt able to assist pt with IV antibiotics at home. Pt states no concerns with going home at time of dc. Pt states no further concerns/needs. CM to follow. Advised pt to ask CM if any further question/concerns/needs arise, voices understanding. Pt Goal: Home with HHC Plan: Home with [facility] and [facility] agency for SN and PT. AKIL GILLILAND to follow plan of care. Floresita BARNARD CM
[2023-09-14 14:11] VITALS: BP 126/57; PULSE 80; RESP 18; TEMP 36.8; O2SAT 98
--- NOTE | 2023-09-14 14:16 | CASEMGMT ---
Discharge Planning Referral sent to I via [facility]. Carito Michel DC Planning Asst.
[2023-09-14] MEDS: Ondansetron 4 MG/2 ML Vial IV (15:59)
[2023-09-14 22:24] VITALS: BP 120/59; PULSE 79; RESP 18; TEMP 36.5; O2SAT 97
[2023-09-15 03:28] VITALS: BP 138/58; PULSE 82; RESP 18; TEMP 36.8; O2SAT 97
[2023-09-15] MEDS: oxyCODONE 5 MG Tablet PO ×4 (03:29→18:47)
[2023-09-15 06:03] LABS: Absolute Lymphocyte Count 1.68 X10^3/uL (0.83-4.51); Basophil# 0.04 X10^3/uL; Basophil% 0.7 % (0-1); Eosinophil# 0.19 X10^3/uL; Eosinophils% 3.5 % (0-5); Hematocrit 33.7 % (37-47); Hemoglobin 10.9 g/dL (12.0-15.0); Lymphocyte # 1.68 X10^3/ul (0.83-4.51); Lymphocyte % 30.9 % (19-41); Mean Corp Hgb Conc 32.3 g/dL (32-36); Mean Corpuscular Hgb 30.3 pg (27.0-32.0); Mean Corpuscular Volume 93.6 fL (81-99); Mean Platelet Vol. 12.6 fl (6.2-12.0); Monocyte# 0.49 X10^3/uL; NRBC Flagged by Analyzer 0 % (0-5); Neutrophil # 3.01 X10^3/uL (2.7-7.7); Neutrophil % 55.5 % (47-70); Platelet Count 144 K/mm3 (150-450); RBC Distribution Width CV 13.7 % (11.6-14.6); RBC Distribution Width SD 47.2 fl (35.1-43.9); White Blood Count 5.4 K/mm3 (4.4-11.0)
[2023-09-15] MEDS: Piperacil/Tazobactam 3.375 GM in 0.9% Normal Saline (50mL MB+) 50 ML IV ×3 (06:10→22:11)
[2023-09-15] MEDS: Acetaminophen 500 MG Tablet 1000 MG PO ×3 (06:10→22:06)
[2023-09-15] MEDS: Rivaroxaban 10 MG Tablet PO (06:10)
[2023-09-15 07:40] VITALS: BP 159/83; PULSE 90; RESP 18; TEMP 36.9; O2SAT 95
[2023-09-15] MEDS: Lisinopril 10 MG Tablet PO (07:43)
--- NOTE | 2023-09-15 09:59 | CASEMGMT ---
Discharge Planning Referral sent to MEREDITH Kumar, and [facility] via [facility]. Carito Michel DC Planning Asst.
--- NOTE | 2023-09-15 10:17 | PCM.PN.ORT ---
Subjective Subjective The patient was sitting in bedside chair upon examination working with therapy. Patient denies any chest pain, shortness of breath, dizziness, lightheadedness, nausea or vomiting, or calf pain. Patient does report she is having some anxiety from everything that has been happening. Pain is controlled on medications. No adverse overnight events. Infectious disease did evaluate the patient yesterday and currently she is on Zosyn and will require PICC line. We are currently awaiting final recommendations from infectious disease for discharge planning. millinery worker has been working with the patient and is okay with going home with [facility] infusion and helping out. Objective Data Objective Data Vital Signs: Vital Signs Temp Pulse Resp BP Pulse Ox O2 Del Method O2 Flow Rate 98.4 F 90 18 159/83 H 95 Room Air 2 09/15/23 07:40 09/15/23 07:40 09/15/23 07:40 09/15/23 07:40 09/15/23 07:40 09/15/23 07:40 09/13/23 20:32 Oxygen Flow Rate (L/min) 2 Oxygen Delivery Method Room Air Weight: 73.028 kg Body Mass Index (BMI) 31.4 Intake & Output: Intake and Output for Last 24 Hours 09/13/23 09/14/23 09/15/23 23:59 23:59 23:59 Intake Total 3365.33 / 3685.33 1020 / 1470 1090 / 1090 Output Total Balance 3365.33 / 3685.33 1010 / 1460 1090 / 1090 Lab / Micro Data 09/15/23 04:59 09/14/23 06:00 Labs: Laboratory Results - last 24 hr 09/15/23 04:59: WBC 5.4, RBC 3.60 L, Hgb 10.9 L, Hct 33.7 L, MCV 93.6, MCH 30.3, MCHC 32.3, RDW Std Deviation 47.2 H, RDW Coeff of Tani 13.7, Plt Count 144 L, MPV 12.6 H, Immature Gran % (Auto) 0.400, Neut % (Auto) 55.5, Lymph % (Auto) 30.9, Carver % (Auto) 9.0, Eos % (Auto) 3.5, Baso % (Auto) 0.7, Absolute Neuts (auto) 3.0, Absolute Lymphs (auto) 1.68, Nucleated RBC % 0 Micro: Microbiology 09/13/23 Unknown Tissue - Femoral Membrane Gram Stain - Final 09/13/23 Unknown Tissue - Femoral Membrane Wound Culture - Final Klebsiella oxytoca 09/13/23 Unknown Tissue - Femoral Membrane Anaerobic Culture - Preliminary Checking for anaerobes, further studies to follow. 09/13/23 Unknown Tissue - Knee Gram Stain - Final 09/13/23 Unknown Tissue - Knee Wound Culture - Preliminary GNR lactose emergency vehicle operations instructor 09/13/23 Unknown Tissue - Knee Anaerobic Culture - Preliminary Checking for anaerobes, further studies to follow. 09/13/23 Unknown Tissue - Tibial Membrane Gram Stain - Final 09/13/23 Unknown Tissue - Tibial Membrane Wound Culture - Preliminary Serratia marcescens GNR Poss Pseudomonas sp 09/13/23 Unknown Tissue - Tibial Membrane Anaerobic Culture - Preliminary Checking for anaerobes, further studies to follow. 08/19/23 09:19 Swab (Method) Nasal Screen MRSA/MSSA - Final Physical Exam Narrative Vital signs stable and afebrile. YOANDY hose are in place but SCDs are currently off as patient is working with therapy. Patient is able to plantarflex and dorsiflex actively. Sensation is intact to light touch to saphenous, sural, superficial and deep peroneal, and tibial distribution. Prevena incisional wound VAC in place. No drainage or output appreciated in canister or tubing. Negative Homans bilaterally, negative signs and symptoms of DVT. Const alert, oriented x3 and no apparent distress Assessment & Plan Assessment/Plan (1) History of arthroplasty of right knee: (2) Status post revision of total replacement of right knee: PLAN: Plan 1. S/P revision right total knee arthroplasty both components femur and tibia POD #2 2. Continue Pain Medications: Tylenol, meloxicam, and oxycodone. I did advise the patient upon discharge we will hold off on meloxicam until she is finished with the Xarelto. 3. DVT Prophylaxis: Xarelto 10 mg 1 tablet daily for 2 weeks postoperatively. Patient gets angioedema with aspirin and we are unable to proceed forward with this medication postoperatively. 4. PT/OT: Weightbearing as tolerated with walker 5. H & H: 10.9/33.7, asymptomatic. Labs have been reviewed 6. Reactive leukocytosis: Resolved and currently 5.4, Afebrile. Patient did receive Decadron intraoperatively. 7. Consultation to infectious disease: Infectious disease has been consulted and did see the patient yesterday. Patient is currently on Zosyn. Awaiting final recommendations for IV antibiotics for 6 weeks postoperatively. Patient will require PICC line. I did discuss with the charge nurse and there was no PICC line ordered. PICC line order will be placed. Patient had positive growth on wound culture on all 3 specimens. Patient has positive cultures for Klebsiella oxytoca, serratia marcescens, GNR possible Pseudomonas, and GNR lactose emergency vehicle operations instructor. Appreciate final recommendations from infectious disease. Patient's is willing to help out for IV infusions. They are currently going through [facility]. 8. Prevena incisional wound VAC: Plan will be to have this on for 1 week postoperatively with removal date on September 20, 2023. I did advise the patient she is not to get this wet. We also discussed removing it if for some reason the battery would fail. She voiced understanding. 9. Encouraged Incentive Spirometry 10. Patient is aware of postoperative constipation that can occur from 1-3 days postoperatively. Will continue with senna 2 tablets twice daily until first bowel movement. Patient was advised if not having a bowel movement after day 3 she is to contact orthopedics so appropriate change can be made. Patient voiced understanding. 11. Continue postoperative medical treatment per medicine 12. Disposition: At this time patient still needs her PICC line placed. Once we have final recommendations from infectious disease for antibiotics plan will be for discharge home with home health physical therapy and nursing. Patient is planning on going through [facility] with her helping out at home. We will take care of all medications tomorrow with anticipated discharge tomorrow once everything has been set up. Case was discussed with pediatric social worker. I have reviewed the [place] Automated Rx Reporting System (OARRS) report for this patient for refill pattern and other prescriber involvement as part of the appropriate surveillance for the provision of acute and chronic controlled medications. The report was requested and reviewed on the date of this entry and was considered in the prescribing process. This dictation was created using voice recognition software. Phonetic and/or grammatical errors may exist.
[2023-09-15] MEDS: Ketorolac 15 MG/ML Vial IV (10:34)
[2023-09-15] MEDS: Meloxicam 7.5 MG Tablet PO ×2 (10:35→22:06)
[2023-09-15] MEDS: Famotidine 20 MG Tablet PO (10:35)
[2023-09-15] MEDS: Multivitamins,Therapeutic Tablet 1 TABLET PO (10:35)
[2023-09-15] MEDS: 0.9% Saline Lock 10 ML Syringe IV (10:35)
[2023-09-15] MEDS: Cholecalciferol (VIT D3) 25 MCG TABLET (1,000 UNITS) 50 MCG PO (10:35)
--- NOTE | 2023-09-15 11:15 | CASEMGMT ---
Addendum entered by Mary Simmons 09/15/23 13:51: Dr. Guido gave this RN CM the Rx for home IV ATB. Scan of Rx sent to [facility] and [facility] via [facility] at this time. Rx placed in pt chart. Original Note: Pt recently got done working with therapy. Pt states that she has her choices made for HHC. See DC school psychologist assistant note. Referrals were made and the pt number one choice ([facility]) accepted. OUMOU Pina states that he will plan on discharging the pt tomorrow, after ID sees the pt and decides which IV ATB the pt will be needing. Per [facility], the medication will cost around 63$/ week after the pt insurance and the supplies will cost around 140$ per week. This RN CM explained this to the pt and the pt who state that they are agreeable to this. The plan is for the pt to get a PICC line today and DC tomorrow. Pt states that she has a friend that can also assist with the home IV infusions. All questions and concerns answered at this time. CM to follow.
[2023-09-15 11:35] LABS: Bedside Glucose 81 mg/dL (74-106)
--- NOTE | 2023-09-15 12:28 | PCM.PN.HOSP ---
Reason for Visit Reason for Visit: Diagnoses Anemia, unspecified (09/13/23) Essential (primary) hypertension (09/13/23) Infection and inflammatory reaction due to unspecified internal joint prosthesis, initial encounter (09/13/23) Encounter for other preprocedural examination (09/13/23) Presence of right artificial knee joint (09/13/23) Subjective Subjective No acute events overnight. Saw patient at bedside this morning. Patient appeared similar today to yesterday. Sitting up fairly comfortably in bedside chair, in no acute distress. She continued to be disappointed about the knee infection and generally appeared somewhat sad. She reported only mild knee pain today. She was aware of the plan to have a PICC line placed for IV antibiotics on discharge. Planning for discharge home with home health care likely tomorrow. No other new concerns today. Objective Data Objective Data Vital Signs: Vital Signs Temp Pulse Resp BP Pulse Ox O2 Del Method O2 Flow Rate 98.4 F 90 18 159/83 H 95 Room Air 2 09/15/23 07:40 09/15/23 07:40 09/15/23 07:40 09/15/23 07:40 09/15/23 07:40 09/15/23 07:40 09/13/23 20:32 Oxygen Flow Rate (L/min) 2 Oxygen Delivery Method Room Air Weight: 73.028 kg Body Mass Index (BMI) 31.4 Intake & Output: Intake and Output for Last 24 Hours 09/13/23 09/14/23 09/15/23 23:59 23:59 23:59 Intake Total 3365.33 / 3685.33 1020 / 1470 1090 / 1090 Output Total Balance 3365.33 / 3685.33 1010 / 1460 1090 / 1090 Lab / Micro Data 09/15/23 04:59 09/14/23 06:00 Labs: Laboratory Results - last 24 hr 09/15/23 04:59: WBC 5.4, RBC 3.60 L, Hgb 10.9 L, Hct 33.7 L, MCV 93.6, MCH 30.3, MCHC 32.3, RDW Std Deviation 47.2 H, RDW Coeff of Tani 13.7, Plt Count 144 L, MPV 12.6 H, Immature Gran % (Auto) 0.400, Neut % (Auto) 55.5, Lymph % (Auto) 30.9, Sac % (Auto) 9.0, Eos % (Auto) 3.5, Baso % (Auto) 0.7, Absolute Neuts (auto) 3.0, Absolute Lymphs (auto) 1.68, Nucleated RBC % 0 09/15/23 07:34: POC Glucose 81 Micro: Microbiology 09/13/23 Unknown Tissue - Femoral Membrane Gram Stain - Final 09/13/23 Unknown Tissue - Femoral Membrane Wound Culture - Final Klebsiella oxytoca 09/13/23 Unknown Tissue - Femoral Membrane Anaerobic Culture - Preliminary Checking for anaerobes, further studies to follow. 09/13/23 Unknown Tissue - Knee Gram Stain - Final 09/13/23 Unknown Tissue - Knee Wound Culture - Preliminary GNR lactose fisheries technician 09/13/23 Unknown Tissue - Knee Anaerobic Culture - Preliminary Checking for anaerobes, further studies to follow. 09/13/23 Unknown Tissue - Tibial Membrane Gram Stain - Final 09/13/23 Unknown Tissue - Tibial Membrane Wound Culture - Preliminary Serratia marcescens GNR Poss Pseudomonas sp 09/13/23 Unknown Tissue - Tibial Membrane Anaerobic Culture - Preliminary Checking for anaerobes, further studies to follow. 08/19/23 09:19 Swab (Method) Nasal Screen MRSA/MSSA - Final Physical Exam Const alert, oriented x3 and no apparent distress Constitutional Narrative: Elderly female, obese, sitting up comfortably in bed, conversing normally, in no acute distress. General Appearance: cooperative and comfortable HEENT normocephalic, head/scalp atraumatic, hearing grossly normal bilaterally, nasal mucous membranes and turbinates normal and moist oral mucous membranes Eyes PERRL, EOMs intact bilaterally and conjunctivae normal Neck full ROM Chest inspection of chest normal Resp normal respiratory effort, normal air movement, no use of accessory muscles and clear to auscultation bilaterally Cardio regular rate, regular rhythm, no murmurs and peripheral pulses 2+ throughout GI normal to inspection, nondistended, normoactive bowel sounds, soft to palpation, non-tender and non-distended Back/Spine normal ROM Extremity Extremity Narrative: Right knee with incisional wound VAC in place. Stable. Skin no rashes or lesions noted Neuro no focal motor deficits and no sensory deficits noted Speech: speech normal Psych mental status grossly normal Assessment & Plan Assessment/Plan (1) Prosthetic joint infection: (2) Status post revision of total replacement of right knee: (3) Anemia: PLAN: Plan Patient is a 67-year-old female who presented [facility] on 09/13/2023 for planned right TKA revision. Medicine consulted postoperatively for medical management. 1. 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 Orthopedic surgery primary. Infectious disease following. Initial right TKA done back in November 2022 but patient had complications, requested second opinion with Dr. Nevarez. S/p right TKA revision with cultures collected on 09/13. Cultures unfortunately prelim growing gram-negative rods. Per ID, will treat with IV Zosyn for now, with plan for PICC and 6 weeks of IV antibiotics then long course of p.o. suppression antibiotics. Pain control with scheduled Tylenol and oxycodone as needed. PT/OT/case management following, tentatively planning for discharge home with home health care on 09/15. 2. Mild acute postoperative anemia ? Hemoglobin 11.8 postop, down from baseline around 13-14. Due to expected operative blood loss. Repeat hemoglobin 10.9 on 09/14. No need to monitor further CBCs while here, can repeat CBC about 1 week after discharge to ensure hemoglobin remains stable. Chronic medical conditions: ? Hypertension: Stable. Continue home lisinopril. ? Obesity: BMI 31 on admit. Complicates hospital course, care and prognosis. DVT prophylaxis: Xarelto Total clinical time spent by myself addressing the patient's medical issues, reviewing all the data, and collaborating with patient's care team: 25 minutes. Charges/Coding Visit Charges Inpatient E&M: [id number] [facility] Hosp L1
[2023-09-15 12:35] VITALS: BP 150/71; PULSE 82; RESP 16; TEMP 36.8; O2SAT 95
--- NOTE | 2023-09-15 15:46 | PCM.PN.ID ---
Physical Exam Narrative Feeling ok, no fever, no n/v/d. Pain improved. Const alert and no apparent distress General Appearance: cooperative Resp normal air movement and clear to auscultation bilaterally Cardio regular rate and regular rhythm GI soft to palpation, non-tender and non-distended Skin no rashes or lesions noted ID ID: Route of nutrition/ use of supplements: [] Nutritional Intake: [] IV Site: [] Moss Catheter: [] Assessment & Plan Assessment/Plan (1) Prosthetic joint infection: PLAN: R knee GNR PJI - taken for revision 09/13/[address] Nevarez. Surg cx with klebs, serratia, and pseudomonas. Pending picc and 6 weeks iv zosyn then long course suppression po. Cx results do not match her clinical presentation or intra-op findings, requested further workup in labs. ID followup in 2 weeks. Will follow
[2023-09-15 16:30] VITALS: BP 152/80; PULSE 84; RESP 18; TEMP 36.9; O2SAT 97
[2023-09-15 20:39] VITALS: BP 114/64; PULSE 82; RESP 16; TEMP 36.8; O2SAT 94
[2023-09-15 23:54] VITALS: BP 122/64; PULSE 87; RESP 16; TEMP 36.8; O2SAT 94
[2023-09-16 03:40] VITALS: BP 135/73; PULSE 84; RESP 16; TEMP 37; O2SAT 96
[2023-09-16] MEDS: oxyCODONE 5 MG Tablet PO ×2 (04:45→08:44)
[2023-09-16] MEDS: Acetaminophen 500 MG Tablet 1000 MG PO ×2 (05:52→13:23)
[2023-09-16] MEDS: Piperacil/Tazobactam 3.375 GM in 0.9% Normal Saline (50mL MB+) 50 ML IV ×2 (05:52→13:24)
[2023-09-16] MEDS: Rivaroxaban 10 MG Tablet PO (05:57)
--- NOTE | 2023-09-16 07:03 | PN.ORTHO_ITS ---
Subjective Subjective The patient was sitting in bedside chair upon examination. Patient denies any chest pain, shortness of breath, dizziness, lightheadedness, nausea or vomiting, or calf pain. Pain is controlled on medications. No adverse overnight events. Patient has been up and walking. She has been doing well with therapy. Plan is for PICC line establishment today. As long as patient has PICC line and home health established plan will be for discharge home today. She has help with administration of the IV antibiotics. She would like her prescriptions E scribed to [facility]. Objective Data Objective Data Vital Signs: Vital Signs Temp Pulse Resp BP Pulse Ox O2 Del Method O2 Flow Rate 98.6 F 84 16 135/73 H 96 Room Air 2 09/16/23 03:40 09/16/23 03:40 09/16/23 03:40 09/16/23 03:40 09/16/23 03:40 09/16/23 03:40 09/13/23 20:32 Oxygen Flow Rate (L/min) 2 Oxygen Delivery Method Room Air Weight: 73.028 kg Body Mass Index (BMI) 31.4 Intake & Output: Intake and Output for Last 24 Hours 09/14/23 09/15/23 09/16/23 23:59 23:59 23:59 Intake Total 1020 / 1470 1590 / 1590 500 / 500 Output Total Balance 1010 / 1460 1590 / 1590 500 / 500 Lab / Micro Data 09/15/23 04:59 09/14/23 06:00 Labs: Laboratory Results - last 24 hr 09/15/23 07:34: POC Glucose 81 Micro: Microbiology 09/13/23 Unknown Tissue - Femoral Membrane Gram Stain - Final 09/13/23 Unknown Tissue - Femoral Membrane Wound Culture - Final Klebsiella oxytoca 09/13/23 Unknown Tissue - Femoral Membrane Anaerobic Culture - Preliminary Checking for anaerobes, further studies to follow. 09/13/23 Unknown Tissue - Knee Gram Stain - Final 09/13/23 Unknown Tissue - Knee Wound Culture - Preliminary GNR lactose concrete rubber 09/13/23 Unknown Tissue - Knee Anaerobic Culture - Preliminary Checking for anaerobes, further studies to follow. 09/13/23 Unknown Tissue - Tibial Membrane Gram Stain - Final 09/13/23 Unknown Tissue - Tibial Membrane Wound Culture - Preliminary Serratia marcescens GNR Poss Pseudomonas sp 09/13/23 Unknown Tissue - Tibial Membrane Anaerobic Culture - Preliminary Checking for anaerobes, further studies to follow. 08/19/23 09:19 Swab (Method) Nasal Screen MRSA/MSSA - Final Physical Exam Narrative Vital signs stable and afebrile. SCDs and YOANDY hose are in place bilaterally Patient is able to plantarflex and dorsiflex actively. Sensation is intact to light touch to saphenous, sural, superficial and deep peroneal, and tibial distribution. Prevena incisional wound VAC in place with no drainage or output in canister or tubing Negative Homans bilaterally, negative signs and symptoms of DVT. Const alert, oriented x3 and no apparent distress Assessment & Plan Assessment/Plan (1) History of arthroplasty of right knee: (2) Status post revision of total replacement of right knee: PLAN: Plan 1. S/P revision right total knee arthroplasty both components femur and tibia POD #3 2. Continue Pain Medications: Tylenol, meloxicam, and oxycodone. I did advise the patient upon discharge we will hold off on meloxicam until she is finished with the Xarelto. 3. DVT Prophylaxis: Xarelto 10 mg 1 tablet daily for 2 weeks postoperatively. Patient gets angioedema with aspirin and we are unable to proceed forward with this medication postoperatively. 4. PT/OT: Weightbearing as tolerated with walker 5. Consultation to infectious disease: Infectious disease has been consulted and did see the patient yesterday. Patient is currently on Zosyn for 6 weeks postoperatively. Patient had positive growth on wound culture on all 3 specimens. Patient has positive cultures for Klebsiella oxytoca, serratia marcescens, GNR possible Pseudomonas, and GNR lactose concrete rubber. Patient's is willing to help out for IV infusions. They are currently going through [facility] [employer]. Per infectious disease documentation yesterday he does document culture results do not match her clinical presentation and requested further workup and labs. Should follow-up with infectious disease in 2 weeks. 6. Prevena incisional wound VAC: Plan will be to have this on for 1 week postoperatively with removal date on September 20, 2023. I did advise the patient she is not to get this wet. We also discussed removing it if for some reason the battery would fail. She voiced understanding. 7. Encouraged Incentive Spirometry 8. Postoperative constipation: Patient has had a bowel movement and we will discontinue the stool softener. She will only use this on an as-needed basis if she does experience constipation. She voiced understanding. 9. Continue postoperative medical treatment per medicine 10. Disposition: Plan will be for discharge home today with home health for IV antibiotics. Continue antibiotics per infectious disease. Will need follow-up with infectious disease in 2 weeks. Case management involved with setting up these appointments. Patient does have outpatient follow-up with [facility] [place] at 2 weeks for suture removal and x-rays. Prescriptions will be sent to [facility] pharmacy. Will continue with the Xarelto for 2 weeks postoperatively as patient has anaphylaxis to aspirin. This will cover her for DVT prophylaxis. Patient will continue with the Tylenol, oxycodone and meloxicam. I did recommend she hold off of the meloxicam until finished with the Xarelto. The incisional wound VAC will be removed on September 20, 2023. She will not get this wet while wound VAC is on. Once it is removed okay to shower and get incision wet. She should avoid submerging underwater for 6 weeks postoperatively. I have reviewed the [place] Automated Rx Reporting System (OARRS) report for this patient for refill pattern and other prescriber involvement as part of the appropriate surveillance for the provision of acute and chronic controlled medications. The report was requested and reviewed on the date of this entry and was considered in the prescribing process. This dictation was created using voice recognition software. Phonetic and/or grammatical errors may exist.
--- NOTE | 2023-09-16 07:22 | PCM.DC ---
Discharge Instructions Diet Discharge Diet: No restrictions Activity Discharge Activity: May Not Drive (No driving for 6 weeks postoperatively. Must also be off all narcotics and able to walk 100 feet without the use of cane or walker.) May shower in (days): 4 (Sponge bathe while the incisional wound VAC in place. Once wound VAC is removed on September 20, 2023, okay to shower. Only use gentle soap and water on the incision) Ice area for (Minutes): 20 (Every 1-2 hours while awake[address] place barrier between the skin and ice pack.) Weight Bearing Status: Weight bearing as tolerated (With walker) Keep extremity elevated above heart level: Operative Extremity Dressing / Incision Call your doctor if your incision/area has: Continuous Slow Oozing, Sudden Increased Bleeding, Increased Pain/ Swelling, Increased Redness and Foul Smelling Discharge Call your doctor if you observe: Fever of 101 or Higher, Coldness, Increased Pain, Numbness or Tingling, Change in Color, Shortness of breath, Chest pain, Calf discomfort and Uncontrolled pain Remove Dressing in: 4 days (Remove incisional wound VAC on September 20, 2023) Additional Dressing/Incision Instructions:: Follow [facility] Post-op Instructions. Once postoperative incisional wound VAC has been removed only use gentle soap and water over the incision. Do not use any ointments, Neosporin, salves, alcohol pads over the incision for 6 weeks postoperatively. Do not submerge underwater for 6 weeks postoperatively. Continue with YOANDY hose/elastic stockings for 2 weeks postoperatively. May remove at nighttime but needs to be placed back on the leg during the day. Once the incisional wound VAC has been removed okay to use nonstick pad over the incision to protect from the YOANDY hose. Do not use any tape or adhesive on nonstick padding. Do NOT use alcohol with narcotic pain medication. Do NOT make important decisions while taking narcotic medication. If you have problems with taking your medication (rash, itching, nausea, etc.) call the office at once. Follow Up Care Test Results: Test results from this visit will be discussed in further detail at your follow-up appointment, if applicable. Discharge Plan Admission Admit Date/Time: 09/13/23 07:16 Attending Provider: Efren Nevarez Primary Care Provider: Rodrigue Jones Consulting Providers: Heraclio Jeffrey; Quinn Guido; Mao Soto Discharge Orders/Prescriptions Prescriptions: New piperacillin-tazobactam 3.375 gram recon soln 3.375 g IV Q8H 40 Days Rx Instructions: stop date 10/25/23. Dx: prosthetic joint infection. Weekly bmp, cbc, and esr. Fax to [phone]. Routine picc care per protocol. acetaminophen 500 mg Tablet 1,000 mg PO TID 14 Days Qty: 84 0RF Rx Instructions: Do not take more than 3000 mg Tylenol in a 24-hour period. famotidine 20 mg Tablet 20 mg PO DAILY 27 Days Qty: 27 0RF oxycodone 5 mg Tablet 5 - 10 mg PO Q4H PRN PRN (Reason: Pain Score 4-10) 7 Days Qty: 42 0RF Xarelto 10 mg Tablet 10 mg PO DAILY@0600 11 Days Qty: 11 0RF Rx Instructions: Take for 2 weeks postoperatively for DVT prophylaxis Continued cholecalciferol (vitamin D3) [Vitamin D3] 50 mcg (2,000 unit) tablet 50 mcg PO DAILY lisinopril 10 mg tablet 10 mg PO DAILY elderberry fruit 200 mg capsule 500 mg PO DAILY multivitamin [Daily Multi-Vitamin] Tablet 1 tab PO DAILY multivitamin [Daily Multi-Vitamin] Tablet 1 tab PO DAILY Held meloxicam 7.5 mg tablet 7.5 mg PO DAILY Hold Instructions: Resume on 09/28/23. Okay to resume meloxicam when finished with Xarelto Discontinued acetaminophen [8 Hour Pain Reliever] 650 mg tablet extended release 650 mg PO Q12H PRN (Reason: pain) Other Ambulatory Orders: 12 Lead EKG (Routine) Timeframe: [id number] Location: None Selected Ordered By: Dr. Efren Nevarez Referrals / Follow Up: Quinn Guido MD [Med Staff - Active Staff] - (follow up in 2 weeks for management of antibiotics) Oz Ferrer PA-C [Med Staff - Adv Practice Prof] - 09/27/23 9:30 am Disposition Disposition (needs filled in before D/C Order can be placed): Home Health Service
--- NOTE | 2023-09-16 07:31 | DS.PCM_ITS ---
Providers Date of Admission: 09/13/23 Date of Discharge: 09/16/23 Primary Care Physician: Dr. Rodrigue Jones MD Consultations 09/13/23 07:17 Consult: Hospitalist Routine Consulting Provider: Heraclio Jeffrey Reason for Consult: post op med management EMERGENT Consult: No Notified: Yes Date Notified: 09/13/23 Time Notified: 19:34 Method of Notification: Text 09/14/23 08:46 Consult: Infectious Disease Routine Consulting Provider: Quinn Guido Reason for Consult: Positive cultures post-op revision total knee arthroplasty EMERGENT Consult: No Notified: Yes Date Notified: 09/14/23 Time Notified: 08:46 Method of Notification: Text Reason For Visit: REVISION TOTAL KNEE REPLACEMENT ENT Diagnosis Discharge Diagnosis (1) History of arthroplasty of right knee: Status: Acute Code(s): Z96.651 - Presence of right artificial knee joint (2) Status post revision of total replacement of right knee: Status: Acute Code(s): Z96.651 - Presence of right artificial knee joint Plan 1. S/P revision right total knee arthroplasty both components femur and tibia POD #3 2. Continue Pain Medications: Tylenol, meloxicam, and oxycodone. I did advise the patient upon discharge we will hold off on meloxicam until she is finished with the Xarelto. 3. DVT Prophylaxis: Xarelto 10 mg 1 tablet daily for 2 weeks postoperatively. Patient gets angioedema with aspirin and we are unable to proceed forward with this medication postoperatively. 4. PT/OT: Weightbearing as tolerated with walker 5. Consultation to infectious disease: Infectious disease has been consulted and did see the patient yesterday. Patient is currently on Zosyn for 6 weeks postoperatively. Patient had positive growth on wound culture on all 3 specimens. Patient has positive cultures for Klebsiella oxytoca, serratia marcescens, GNR possible Pseudomonas, and GNR lactose naval aircrewman. Patient's is willing to help out for IV infusions. They are currently going through [facility]. Per infectious disease documentation yesterday he does document culture results do not match her clinical presentation and requested further workup and labs. Should follow-up with infectious disease in 2 weeks. 6. Prevena incisional wound VAC: Plan will be to have this on for 1 week postoperatively with removal date on September 20, 2023. I did advise the patient she is not to get this wet. We also discussed removing it if for some reason the battery would fail. She voiced understanding. 7. Encouraged Incentive Spirometry 8. Postoperative constipation: Patient has had a bowel movement and we will discontinue the stool softener. She will only use this on an as-needed basis if she does experience constipation. She voiced understanding. 9. Continue postoperative medical treatment per medicine 10. Disposition: Plan will be for discharge home today with home health for IV antibiotics. Continue antibiotics per infectious disease. Will need follow-up with infectious disease in 2 weeks. Case management involved with setting up these appointments. Patient does have outpatient follow-up with [facility] at 2 weeks for suture removal and x-rays. Prescriptions will be sent to [facility] pharmacy. Will continue with the Xarelto for 2 weeks postoperatively as patient has anaphylaxis to aspirin. This will cover her for DVT prophylaxis. Patient will continue with the Tylenol, oxycodone and meloxicam. I did recommend she hold off of the meloxicam until finished with the Xarelto. The incisional wound VAC will be removed on September 20, 2023. She will not get this wet while wound VAC is on. Once it is removed okay to shower and get incision wet. She should avoid submerging underwater for 6 weeks postoperatively. I have reviewed the [place] Automated Rx Reporting System (OARRS) report for this patient for refill pattern and other prescriber involvement as part of the appropriate surveillance for the provision of acute and chronic controlled medications. The report was requested and reviewed on the date of this entry and was considered in the prescribing process. This dictation was created using voice recognition software. Phonetic and/or grammatical errors may exist. Medications at Discharge Home Medications cholecalciferol (vitamin D3) 50 mcg (2,000 unit) tablet (Vitamin D3) 50 mcg PO DAILY SUPPLEMENT 08/18/23 elderberry fruit 200 mg capsule 500 mg PO DAILY SUPPLEMENT 08/18/23 lisinopril 10 mg tablet 10 mg PO DAILY HYPERTENSION 08/18/23 meloxicam 7.5 mg tablet 7.5 mg PO DAILY PAIN 08/18/23 multivitamin (Daily Multi-Vitamin tablet) 1 tab PO DAILY SUPPLEMENT 08/18/23 multivitamin (Daily Multi-Vitamin tablet) 1 tab PO DAILY health 08/05/24 piperacillin-tazobactam 3.375 gram intravenous solution 3.375 g IV Q8H 40 days 09/15/23 acetaminophen 500 mg tablet 1,000 mg (2 x 500 mg) PO TID 14 days #84 tabs 09/16/23 famotidine 20 mg tablet 20 mg PO DAILY 27 days #27 tabs 09/16/23 oxycodone 5 mg tablet 5 - 10 mg (1 - 2 x 5 mg) PO Q4H PRN PRN Pain Score 4-10 7 days #42 tabs 09/16/23 rivaroxaban 10 mg tablet (Xarelto) 10 mg PO DAILY@0600 11 days #11 tabs 09/16/23 Hospital Course Operations total knee replacement (Revision right total knee arthroplasty on September 13, 2023) Summary of Care Provided Hospital Course: Patient is a 68-year-old female who underwent a previous right total knee arthroplasty by Dr. Campos on November 27, 2022. This was followed by a manipulation under anesthesia on February 15, [address] Campos practice. Patient continued to have pain and stiffness with the knee. She followed up with Dr. Efren Nevarez for second opinion. Preoperative inflammatory lab work was negative for infection on workup. After failing conservative measures, the patient opted to proceed with a revision right total knee arthroplasty. The patient underwent the above-stated procedure on September 13, 2023. Patient did receive perioperative antibiotics. Intraoperatively was uneventful. For details please see dictated operative note. Cultures were obtained and surgery and upon following patient did grow out bacteria on all 3 specimens. She had positive growth consisting of Klebsiella oxytoca, serratia marcescens, GNR possible pseudomonas, and GNR lactose naval aircrewman. Infectious disease has been involved with management and currently placed on Zosyn IV for 6 weeks postoperatively with PICC line. Cultures do not match her clinical presentation and infectious diseases requesting further workup and labs. She will follow-up with Dr. Guido 2 weeks. Plan will be for 6 weeks IV antibiotics. The patient was placed in thigh-high teds, bilateral SCDs, remained stable in recovery. Patient was admitted to the 3rd floor at [facility]. The patient's pain was managed with the use of IV and p.o. pain medications. Patient participated in physical therapy. Patient was discharged on postoperative day # 3 to home with home health for IV antibiotics and physical therapy. Patient was given medications stated below. Patient is currently on Xarelto for 2 weeks postoperatively due to anaphylaxis with aspirin. This will cover her for DVT prophylaxis. After finishing Xarelto she will resume her meloxicam. She will continue with Tylenol and oxycodone for primary pain control at this time. Patient has had a bowel movement in the hospital and will use stool softener on an as-needed basis if experiencing any constipation upon discharge. She will also continue with her incisional wound VAC for 1 week postoperatively with removal on September 20, 2023 at home. She is not to get this wet and use sponge bathe while at home. Once removed okay to shower and get incision wet at that time. Patient will follow up with [facility] per postop instructions for reassessment, x-rays, and suture removal. She will require 2-week follow-up with infectious disease. Physical Exam Narrative Vital signs stable and afebrile. SCDs and YOANDY hose are in place bilaterally Patient is able to plantarflex and dorsiflex actively. Sensation is intact to light touch to saphenous, sural, superficial and deep peroneal, and tibial distribution. Prevena incisional wound VAC in place with no drainage/output in canister or tubing Negative Homans bilaterally, negative signs and symptoms of DVT. Const alert, oriented x3 and no apparent distress Weight / BMI Weight Weight: 73.028 kg Body Mass Index (BMI) 31.4 ABG / Lab / Microbiology Data 09/15/23 04:59 09/14/23 06:00 Laboratory: Laboratory Results - last 24 hr 09/15/23 07:34: POC Glucose 81 Microbiology: Microbiology 09/13/23 Unknown Tissue - Femoral Membrane Gram Stain - Final 09/13/23 Unknown Tissue - Femoral Membrane Wound Culture - Final Klebsiella oxytoca 09/13/23 Unknown Tissue - Femoral Membrane Anaerobic Culture - Preliminary Checking for anaerobes, further studies to follow. 09/13/23 Unknown Tissue - Knee Gram Stain - Final 09/13/23 Unknown Tissue - Knee Wound Culture - Preliminary GNR lactose naval aircrewman 09/13/23 Unknown Tissue - Knee Anaerobic Culture - Preliminary Checking for anaerobes, further studies to follow. 09/13/23 Unknown Tissue - Tibial Membrane Gram Stain - Final 09/13/23 Unknown Tissue - Tibial Membrane Wound Culture - Preliminary Serratia marcescens GNR Poss Pseudomonas sp 09/13/23 Unknown Tissue - Tibial Membrane Anaerobic Culture - Preliminary Checking for anaerobes, further studies to follow. 08/19/23 09:19 Swab (Method) Nasal Screen MRSA/MSSA - Final D/C Instructions Discharge Diet: No restrictions May shower in (days): 4 (Sponge bathe while the incisional wound VAC in place. Once wound VAC is removed on September 20, 2023, okay to shower. Only use gentle soap and water on the incision) Ice area for (Minutes): 20 (Every 1-2 hours while awake. Please place barrier between the skin and ice pack.) Weight Bearing Status: Weight bearing as tolerated (With walker) Keep extremity elevated above heart level: Operative Extremity Call your doctor if your incision/area has: Continuous Slow Oozing, Sudden Increased Bleeding, Increased Pain/ Swelling, Increased Redness and Foul Smelling Discharge Call your doctor if you observe: Fever of 101 or Higher, Coldness, Increased Pain, Numbness or Tingling, Change in Color, Shortness of breath, Chest pain, Calf discomfort and Uncontrolled pain Additional Dressing/Incision Instructions: Follow [facility] Post-op Instructions. Once postoperative incisional wound VAC has been removed only use gentle soap and water over the incision. Do not use any ointments, Neosporin, salves, alcohol pads over the incision for 6 weeks postoperatively. Do not submerge underwater for 6 weeks postoperatively. Continue with YOANDY hose/elastic stockings for 2 weeks postoperatively. May remove at nighttime but needs to be placed back on the leg during the day. Once the incisional wound VAC has been removed okay to use nonstick pad over the incision to protect from the YOANDY hose. Do not use any tape or adhesive on nonstick padding. Do NOT use alcohol with narcotic pain medication. Do NOT make important decisions while taking narcotic medication. If you have problems with taking your medication (rash, itching, nausea, etc.) call the office at once. Meaningful Use Info Meaningful Use Meaningful Use Diagnoses (Choose all that apply): None applicable Ischemic Stroke Statin Dosing Therapy Reference: STATIN DOSE THERAPY REFERENCE: * Patients > 75 years receive moderate or high dose statin therapy. * Patients 75 years or YOUNGER should receive HIGH intensity statin dose unless contraindicated. You will be required to document reason for non-treatment if statin daily dose does not meet guidelines. HIGH DOSE STATIN THERAPY DAILY Atorvastatin > than or = to 40 mg Rosuvastatin > than or = to 20 mg Amlodipine + Atorvastatin > than or = to 2.5/40 mg Ezetimibe + Simvastatin 10/80 mg Simvastatin 80mg Discharge Plan Admission Admit Date/Time: 09/13/23 07:16 Attending Provider: Efren Nevarez Primary Care Provider: Rodrigue Jones Consulting Providers: Heraclio Jeffrey; Quinn Guido; Mao Soto Discharge Orders/Prescriptions Prescriptions: New piperacillin-tazobactam 3.375 gram recon soln 3.375 g IV Q8H 40 Days Rx Instructions: stop date 10/25/23. Dx: prosthetic joint infection. Weekly bmp, cbc, and esr. Fax to [phone]. Routine picc care per protocol. acetaminophen 500 mg Tablet 1,000 mg PO TID 14 Days Qty: 84 0RF Rx Instructions: Do not take more than 3000 mg Tylenol in a 24-hour period. famotidine 20 mg Tablet 20 mg PO DAILY 27 Days Qty: 27 0RF oxycodone 5 mg Tablet 5 - 10 mg PO Q4H PRN PRN (Reason: Pain Score 4-10) 7 Days Qty: 42 0RF Xarelto 10 mg Tablet 10 mg PO DAILY@0600 11 Days Qty: 11 0RF Rx Instructions: Take for 2 weeks postoperatively for DVT prophylaxis Continued cholecalciferol (vitamin D3) [Vitamin D3] 50 mcg (2,000 unit) tablet 50 mcg PO DAILY lisinopril 10 mg tablet 10 mg PO DAILY elderberry fruit 200 mg capsule 500 mg PO DAILY multivitamin [Daily Multi-Vitamin] Tablet 1 tab PO DAILY multivitamin [Daily Multi-Vitamin] Tablet 1 tab PO DAILY Held meloxicam 7.5 mg tablet 7.5 mg PO DAILY Hold Instructions: Resume on 09/28/23. Okay to resume meloxicam when finished with Xarelto Discontinued acetaminophen [8 Hour Pain Reliever] 650 mg tablet extended release 650 mg PO Q12H PRN (Reason: pain) Other Ambulatory Orders: 12 Lead EKG (Routine) Timeframe: [id number] Location: None Selected Ordered By: Dr. Efren Nevarez Referrals / Follow Up: Quinn Guido MD [Med Staff - Active Staff] - (follow up in 2 weeks for management of antibiotics) Oz Ferrer PA-C [Med Staff - Adv Practice Prof] - 09/27/23 9:30 am Disposition Disposition (needs filled in before D/C Order can be placed): Home Health Service
[2023-09-16 08:25] VITALS: BP 149/66; PULSE 101; PULSE 104; RESP 18; TEMP 36.7; O2SAT 98
[2023-09-16] MEDS: Meloxicam 7.5 MG Tablet PO (08:32)
[2023-09-16] MEDS: Famotidine 20 MG Tablet PO (08:32)
[2023-09-16] MEDS: Multivitamins,Therapeutic Tablet 1 TABLET PO (08:32)
[2023-09-16] MEDS: Cholecalciferol (VIT D3) 25 MCG TABLET (1,000 UNITS) 50 MCG PO (08:33)
[2023-09-16] MEDS: Lisinopril 10 MG Tablet PO (08:33)
--- NOTE | 2023-09-16 09:19 | CASEMGMT ---
Addendum entered by Mary Simmons 09/16/23 15:20: TC to [facility] who state that [facility] does not have the Xarelto in stock. The [facility] Pharmacist states that the pt is OK with filling the Rx here and paying the 210$ for the prescription. At this time, the PICC is working fine and the pt denies any further needs from this RN CM. Card given in the case that any needs arise. PLAN: DC Home with with HHC and IV ATB's, after 1400 ATB infusion completes. [facility] to deliver med at 1730. Pt RN aware. Addendum entered by Mary Simmons 09/16/23 14:42: Per the XR, it appears that the PICC line placement is OK. [facility] states that they have everything that they need and that they will be to the pt home tomorrow morning between 0800 and 0900. Pt and pt are aware of this and are OK with this. [facility] states that they talked to the pt and that they are OK with the IV medications being delivered today at 1730. The pt only concern at this point is the cost of the Xarelto. This RN CM called [facility] who state that they still do not have the Rx. This RN CM called [facility] and they state that they will fax the order again to [phone]. Will follow. Addendum entered by Mary Simmons 09/16/23 12:33: RN CM to pt room at this time. Pt PICC is bleeding. XR has been completed to verify placement. [facility]. Collaborated with pt RN who states that she will start the due 1400 ATB dose at 1300 so the infusion will be completed at 1700 and then DC subsequently as long as the PICC is working appropriately. Pt is requesting the IV medications to be delivered at 2000 tonight. Request sent to [facility] via [employer] at this time. [facility] updated with the POC via [employer]. DC summary and PICC documentation sent. Dr. Kauffman states that he is OK with the pt missing the 2200 dose tonight as the [facility] company cannot start care until tomorrow morning. Pt is aware and is OK with this. Addendum entered by Mary Simmons 09/16/23 10:01: This RN CM called [facility] and the pharm states that the pt Xarelto is 210$ and the savings card cannot be applied d/t the dose. Cost of the other medications is 15$ total. TC to pt at this time and the pt requests the Rx to be transferred to [facility] d/t the pt having a benefit card affiliated with this location. TC to [facility] and they state they can transfer all of the medication e/f the Oxycodone. This medication is 4$ in total. TC to the pt and he states that it is OK to keep the Oxy at [facility] and have the other medications transferred to [facility]. Original Note: Per the [employer] special agent in charge, the pt will be getting the PICC line placed this morning and the PA will be placing an order for DC this afternoon so the tentative plan is to have the pt 1400 IV dose infused here and then DC subsequently. SHIRA.
--- NOTE | 2023-09-16 09:28 | PN.HOSP_ITS ---
Subjective Subjective Doing well, no issues overnight Objective Data Objective Data Vital Signs: Vital Signs Temp Pulse Resp BP Pulse Ox O2 Del Method O2 Flow Rate 98.0 F 101 H 18 149/66 H 98 Room Air 2 09/16/23 08:25 09/16/23 08:25 09/16/23 08:25 09/16/23 08:25 09/16/23 08:25 09/16/23 08:25 09/13/23 20:32 Oxygen Flow Rate (L/min) 2 Oxygen Delivery Method Room Air Weight: 161 lb Body Mass Index (BMI) 31.4 Intake & Output: Intake and Output for Last 24 Hours 09/15/23 09/16/23 09/17/23 03:59 03:59 03:59 Intake Total 1200 / 1200 1140 / 1140 450 / 450 Output Total Balance 1190 / 1190 1140 / 1140 450 / 450 Lab / Micro Data 09/15/23 04:59 09/14/23 06:00 Labs: Laboratory Results - last 24 hr 09/15/23 07:34: POC Glucose 81 Micro: Microbiology 09/13/23 Unknown Tissue - Femoral Membrane Gram Stain - Final 09/13/23 Unknown Tissue - Femoral Membrane Wound Culture - Final Klebsiella oxytoca 09/13/23 Unknown Tissue - Femoral Membrane Anaerobic Culture - Preliminary Checking for anaerobes, further studies to follow. 09/13/23 Unknown Tissue - Knee Gram Stain - Final 09/13/23 Unknown Tissue - Knee Wound Culture - Preliminary GNR lactose hybrid technologist 09/13/23 Unknown Tissue - Knee Anaerobic Culture - Preliminary Checking for anaerobes, further studies to follow. 09/13/23 Unknown Tissue - Tibial Membrane Gram Stain - Final 09/13/23 Unknown Tissue - Tibial Membrane Wound Culture - Preliminary Serratia marcescens GNR Poss Pseudomonas sp 09/13/23 Unknown Tissue - Tibial Membrane Anaerobic Culture - Preliminary Checking for anaerobes, further studies to follow. 08/19/23 09:19 Swab (Method) Nasal Screen MRSA/MSSA - Final Physical Exam Narrative General: Alert, Oriented x3, Cooperative, No apparent distress HEENT: Atraumatic, PERRLA, EOMI, Normocephalic Oral: Moist Mucosa Neck: Supple, No JVD Lungs: Diminished, Normal air movement, No rhonchi, No wheeze, No rales Cardiovascular: Regular rate, Regular Rhythm, Normal S1, Normal S2, No murmurs Abdomen: Soft, Non Tender, Non-Distended, No Hepato-splenomegaly Extremities: No edema, Capillary Refill Less than 3 Seconds Skin: Dressing CDI Musculoskeletal: No Tenderness to Palpation of Joints or Extremities Neurological: No focal neurological deficits, Motor Exam 5/5 strength throughout, Sensory exam intact to light touch and pain Psych/Mental Status: Normal Affect, Appropriate Assessment & Plan Assessment/Plan (1) Prosthetic joint infection: (2) Status post revision of total replacement of right knee: (3) Anemia: PLAN: Plan 1. 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 Orthopedic surgery primary. Infectious disease following. Initial right TKA done back in November 2022 but patient had complications, requested second opinion with Dr. Nevarez. S/p right TKA revision with cultures collected on 09/13. Cultures unfortunately prelim growing gram-negative rods. Per ID, will treat with IV Zosyn for now, with plan for PICC and 6 weeks of IV antibiotics then long course of p.o. suppression antibiotics. Pain control with scheduled Tylenol and oxycodone as needed. PT/OT/case management following, tentatively planning for discharge home with home health care on 09/15. 09/16/2023: Plan for ID follow-up in 2 weeks, okay for discharge with home health today, medically stable 2. Mild acute postoperative anemia ? Hemoglobin 11.8 postop, down from baseline around 13-14. Due to expected operative blood loss. Repeat hemoglobin 10.9 on 09/14. No need to monitor further CBCs while here, can repeat CBC about 1 week after discharge to ensure hemoglobin remains stable. Chronic medical conditions: ? Hypertension: Stable. Continue home lisinopril. ? Obesity: BMI 31 on admit. Complicates hospital course, care and prognosis. DVT prophylaxis: Xarelto ? Will sign off Charges/Coding Visit Charges Inpatient E&M: 71875 Subs Hosp L2
--- NOTE | 2023-09-16 11:21 | PCM.OP.PRO ---
Procedure Report Date of Procedure: 09/16/23 Assessment & Plan Assessment/Plan (1) Prosthetic joint infection: QUALIFIERS: Encounter type: initial encounter Qualified Code(s): T84.50XA - Infection and inflammatory reaction due to unspecified internal joint prosthesis, initial encounter Procedures Radiology Radiology Access Procedures: PICC Procedure Time Out Time Out Informed consent given: Yes Consent signed: Yes Time out checklist: patient, procedure, site marked/identified, positioning of patient, supplies available and allergies confirmed Time out staff in room: Yes Time out verified: Yes Time out date: 09/16/23 Time out time: 09:58 PICC Line Consent Screening tool completed:: Yes Consent obtained:: Yes Consent given by (patient or responsible constitution party):: patient Line successful (if no, document why in comments):: Yes Insertion Reason for Insertion: Mcfp Medication Date of Insertion: 09/16/23 Ok to use: Yes Type of PICC inserted: Single Power PICC PICC Lot #: [id number] PICC Reference #: [id number] Microintroducer Used: Yes (in kit) Ultrasound/Equipment Used: Probe Cover Kit Trimmed Length (cm): 45 Insertion Length (cm): 43 Exposed Length (cm): 2 Tip Placement: SVC (Superior Vena Cava) Placement Confirmation: Xray Insertion Vein: Right Basilic Insertion Attempts: 1 Local Anesthesia Used: Lidocaine 1% (in kit) Dressing Applied: Statlock and Tegaderm CHG Arm Measurement above site (in cm): 29 Patient Tolerated Procedure: Well Threading Difficulties: No Comments Comment: Patient identity was verified with two patient identifiers. Informed consent was obtained and time-out was completed. Hands were sanitized. The patient was positioned supine with right arm at 90 degrees. The patient's upper arm vasculature was assessed using ultrasound. Patency of the right basilic vein was confirmed and the vein was externally marked. An external measurement was obtained of 45 cm. External leads were applied to the patient's right upper chest and laterally and inferior of the umbilicus on the mid axillary line. Cap, mask, and prep gloves were donned. The underdrape was placed under the patient's arm. The site was prepped with chlorhexidine, and tourniquet was loosely applied. Prep gloves were discarded, and hands were sanitized. The sterile kit was opened with additional supplies dropped in. Sterile gown and gloves were donned, and the patient was draped. The sterile kit was assembled with needle, introducer, needless connector, and catheter lumen flushed with sterile normal saline. The marked site of insertion was anesthetized with 1% lidocaine from the kit. Patient tolerated well. The right basilic vein was then accessed using ultrasound guidance. The first guidewire was dropped onto the floor. So a second guidewire kit was dropped into the sterile field and the guidewire was inserted to the safety sixto. The tourniquet was released. The access needle was removed while securing the guidewire in place. The site was again anesthetized with 1% lidocaine, prior to insertion of introducer sheath and dilator. Patient tolerated the insertion well. The catheter was trimmed to a length of 45 cm. Using 3Cg guidance, the catheter was then inserted through the introducer sheath, slowly. There was no resistance on insertion. The catheter followed the expected course of the vessel using 3CG tracking. The introducer sheath was retracted and peeled away, incrementally, while keeping the catheter secured. Maximal p-wave, without deflection, confirming placement in the cavoatrial junction, was obtained at an insertion length of 43 cm, leaving 2 cm external. The 3 ECG technology was unable to voice recognize to freeze image. So a x-ray will be obtained to document placement. The stylet was removed. A flushed needleless connector was attached to the lumen. Aspiration of the lumen was performed to remove any air and confirm blood return. Blood return was verified and the lumen was flushed with 10 ml of sterile normal saline in a pulsatile fashion. The lumen was clamped with the last pulsed flush. Total sterile flushes used for the insertion was 5 10 ml syringes, 1 from the kit. Finally, the insertion site was cleaned with chlorhexidine, and the catheter was secured using a StatLock. The site was covered with a Tegaderm CHG Dressing and disinfecting caps were applied. Baseline arm circumference was obtained at the insertion site and measured 29 cm. The patient was provided with a patient education handout on PICC line care of infection prevention, heavy lifting restriction, maintaining mobility, and watching for any signs of infection. The charge nurse is aware that the PICC line is ready for use.
--- NOTE | 2023-09-16 11:25 | RAD_ITS ---
HISTORY: picc placement;ready now. TECHNIQUE: XR Chest 1 View. COMPARISON: None. FINDINGS: CARDIOMEDIASTINAL BORDERS: Cardiac silhouette within normal limits in size. Mediastinal contour unremarkable. Right PICC tip at the level of the distal superior vena cava. LUNGS: Radiographically clear. PLEURA: No pleural effusion or pneumothorax seen. OSSEOUS STRUCTURES: Sclerotic lesion in the left humeral neck. RAD/CXR for Line Placement IMPRESSION: Satisfactory appearance of right PICC. No acute cardiopulmonary process identified. 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 Electronically Signed: Isabella Hutton MD at 12:33 EDT ,
[2023-09-16 13:26] VITALS: BP 144/75; PULSE 95; RESP 18; TEMP 36.8; O2SAT 92
--- NOTE | 2023-09-16 15:43 | PHA.DC.MR.R ---
Pharmacy [place] Med Reconciliation Pharmacy Service has performed discharge medication reconciliation for this patient. Medication education papers prepared, patient discharged before I was able to day camp counselor. Medications reviewed. The patient's discharge medication list was reviewed for discrepancies and discrepancies were resolved. Medications at Discharge Home Medications cholecalciferol (vitamin D3) 50 mcg (2,000 unit) tablet (Vitamin D3) 50 mcg PO DAILY SUPPLEMENT 08/18/23 elderberry fruit 200 mg capsule 500 mg PO DAILY SUPPLEMENT 08/18/23 lisinopril 10 mg tablet 10 mg PO DAILY HYPERTENSION 08/18/23 meloxicam 7.5 mg tablet 7.5 mg PO DAILY PAIN 08/18/23 multivitamin (Daily Multi-Vitamin tablet) 1 tab PO DAILY SUPPLEMENT 08/18/23 multivitamin (Daily Multi-Vitamin tablet) 1 tab PO DAILY health 09/13/23 piperacillin-tazobactam 3.375 gram intravenous solution 3.375 g IV Q8H 40 days 09/15/23 acetaminophen 500 mg tablet 1,000 mg (2 x 500 mg) PO TID 14 days #84 tabs 09/16/23 famotidine 20 mg tablet 20 mg PO DAILY 27 days #27 tabs 09/16/23 oxycodone 5 mg tablet 5 - 10 mg (1 - 2 x 5 mg) PO Q4H PRN PRN Pain Score 4-10 7 days #42 tabs 09/16/23 rivaroxaban 10 mg tablet (Xarelto) 10 mg PO DAILY@0600 11 days #11 tabs 09/16/23
== END 2023-09-16 18:00 | disposition home health service (06) | DRG 467 ==
LOC: ACINP 15:00 → MS3 18:41
PROVIDERS: Anesthesiology; Physician Assistant Surgical; Admitting Provider Specialist; Referring Provider Specialist; Visit Provider Specialist
PROC: 0SRC0J9 Replacement of Right Knee Joint with Synthetic Substitute, Cemented, Open Approach (ICD-10-PCS; principal; 2023-09-13 10:50)
DX: T84.84XA Pain due to internal orthopedic prosthetic devices, implants and grafts, initial encounter (principal); D62 Acute posthemorrhagic anemia; T84.53XA Infection and inflammatory reaction due to internal right knee prosthesis, initial encounter; I10 Essential (primary) hypertension; E66.9 Obesity, unspecified; M24.661 Ankylosis, right knee; B96.1 Klebsiella pneumoniae [K. pneumoniae] as the cause of diseases classified elsewhere; B96.5 Pseudomonas (aeruginosa) (mallei) (pseudomallei) as the cause of diseases classified elsewhere; B96.89 Other specified bacterial agents as the cause of diseases classified elsewhere; X58.XXXA Exposure to other specified factors, initial encounter; Z68.31 Body mass index [BMI] 31.0-31.9, adult; Z96.651 Presence of right artificial knee joint; Z79.1 Long term (current) use of non-steroidal anti-inflammatories (NSAID); Z79.899 Other long term (current) drug therapy
CPT/HCPCS: 36415; 36569; 71045; 73560; 80048; 82040; 82962; 83735; 85025; 85027; 87015; 87070; 87075; 87077; 87081; 87102; 87116; 87176; 87184; 87186; 87205; 87206; 93005; 94668; 97110; 97116; 97162; 97165; 97530; 99252; C1776; J7120; A4216; G0463; J2405; J3475